=== PATIENT | male | born 1940 | race Caucasian/White ===

== ENCOUNTER 2017-01-05 16:46 | Inpatient (IN) ==
[2017-01-05] MEDS ORDERED: NITROGLYCERIN 2% OINT 1 INCH/GM PACK TOP STA (17:02)
[2017-01-05] MEDS ORDERED: ONDANSETRON 4 MG/2 ML VIAL IV PRN (17:02)
[2017-01-05] MEDS ORDERED: NITROGLYCERIN SL 0.4 MG TABLET SL PRN (17:02)
[2017-01-05] MEDS ORDERED: ENOXAPARIN 100 MG/ML SYRINGE SUBCUT STA (17:02)
[2017-01-05] MEDS ORDERED: MORPHINE 2 MG/1 ML SYRINGE IV PRN ×2 (17:02→20:08)
--- NOTE | 2017-01-05 17:06 | EKG Report ---
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
[2017-01-05 17:17] LABS: Basophils % 0.3 % (0.0-0.8); Eosinophils # 0.1 10*3/uL (0.0-0.87); Eosinophils % 1.2 % (0.00-10.9); Hematocrit 37.1 VOL% (42.0-52.0); Hemoglobin 11.8 GM/DL (14.0-18.0); Immature Granulocytes % 0.3 %; Immature Granulocytes Absolute 0.02 #; Lymphocytes # 2.3 10*3/uL (1.4-4.0); Lymphocytes % 35.5 % (21.2-54.2); Mean Corpuscular HGB Conc 31.8 GM/DL (32-36); Mean Corpuscular Hemoglobin 26 PG (27-34); Mean Corpuscular Volume 81.5 FL (87-102); Mean Platelet Volume 8.9 FL (9.6-12.0); Monocytes # 0.6 10*3/uL (0.11-0.8); Monocytes % 9.7 % (1.7-12.7); Neutrophils # 3.5 10*3/uL (1.4-7.4); Platelet Count 253 T/CUMM (130-400); Red Blood Count 4.55 MC/CUMM (3.8-5.5); Red Cell Distribution Width 15.4 % (9.3-17.3); White Blood Count 6.6 T/CUMM (4-12)
[2017-01-05] MEDS ORDERED: ENOXAPARIN 100 MG/ML SYRINGE SUBCUT ONE (17:17)
[2017-01-05] MEDS ORDERED: NITROGLYCERIN 2% OINT 1 INCH/GM PACK TOP ONE (17:17)
--- NOTE | 2017-01-05 17:22 | Emergency Department Note ---
Enzo Medeiros Emily, am scribing for, and in the presence of, Laurent Garcia MD 17:09. Radha Medeiros James D, MD, personally performed the services described in this documentation, ascribed by Lindy Giraldo in my presence, and it is both accurate and complete . 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 Spouse reports pt missed all medications this morning, his BP medication, Plavix, seizure medication, etc. However, having no medications since last night. Pt denies smoking, melena. He reports being allergic to aspirin, in which he breaks out. PMHx of severe heart attack in 2015, from previous massive stroke with seizure previously to that. Pt's BP is elevated in the 200s/147 in the ED. Onset (ago): minute(s) Consistency: constant, intermittent Severity: moderate Quality: sharp Allergies/Adverse Reactions: Allergies Allergy/AdvReac Type Severity Reaction Status Date / Time aspirin Allergy RASH Verified 01/05/17 17:02 Home Medications: Home Medications Medication Instructions Recorded Confirmed Type Benazepril [Lotensin] 40 mg PO DAILY 03/26/15 03/20/16 History Metoprolol Succinate 100 mg PO DAILY 03/26/15 03/20/16 History Omeprazole [Prilosec] 20 mg PO DAILY 03/26/15 03/20/16 History Clopidogrel [Plavix] 75 mg PO DAILY #30 tablet 03/27/15 03/20/16 Rx Glyburide,Micronized [Glyburide 9 mg PO AC BREAKFAST #45 tablet 08/16/15 Rx Micronized] glyBURIDE MICRONIZED [Glynase] 6 mg PO BEDTIME 08/16/15 03/20/16 History Magnesium Chloride [Slow Mag] 64 mg PO BID 03/20/16 03/20/16 History Meloxicam [Mobic] 15 mg PO DAILY 03/20/16 03/20/16 History Phenytoin ER Cap [Dilantin Cap] 100 mg PO BID 03/20/16 03/20/16 History cloNIDine TAB [Catapres Tab] 0.1 tablet PO DAILY 03/20/16 03/20/16 History levETIRAcetam [Keppra Xr] 500 tablet PO DAILY 03/20/16 03/20/16 History Review of System - Review of System 12 point system: reviewed and no additional remarkable complaints except as stated - Review of System Constitutional: Absent: chills, fever Respiratory: Absent: respiratory distress Cardiovascular: Present: chest pain (sharp pain every 10-15 minutes, radiating to left arm) Gastrointestinal: Absent: abdominal pain, nausea Musculoskeletal: Present: arm pain (left arm). Absent: back pain Skin: Absent: rash Neurological: Absent: headache, numbness Medical,Surgical,& Family Hx - Medical History Cardio: History of: Hypertension Neurology: History of: Cerebrovascular Accident (tia couple weeks ago), Seizures (new), TIA Endocrine: History of: Diabetes Mellitus (NIDDM) Gastrointestinal: History of: GERD, GI Problems (GASTRIC ULCER) - Surgical History Neurologic Surgeries: Patient denies: Neurologic Surgery Abdominal Surgeries: Surgical HX of: Abdominal Surgery (nerves clipped in stomach for ulcers), Appendectomy, Hernia Repair - Family History Family History: Reports;: Family Diabetes (mom and sister), Family Hypertension - Social History Smoking Status: Never smoker Marital Status: Lives With:: Spouse Functional capacity: independent ambulation Exam Vital Signs: Vital Signs Temperature 98.0 F 01/05/17 18:08 Pulse Rate 63 01/05/17 18:17 Respiratory Rate 28 H 01/05/17 18:17 Blood Pressure 218/82 01/05/17 18:17 O2 Sat by Pulse Oximetry 99 01/05/17 18:17 GENERAL: This is a well-nourished well-developed white male in no apparent distress. VITAL SIGNS: Reviewed HEENT: Head is atraumatic and normocephalic. Pupils are equal round react to light. Extraocular movements are intact. Oropharynx is benign with moist mucous membranes. NECK: Neck is soft and supple without tenderness. There are no masses. There is no lymphadenopathy. LUNGS: Lungs are clear to auscultation. Chest rises symmetrically. There is no chest wall tenderness. CV: Heart is regular rate and rhythm without murmurs rubs or gallops. ABDOMEN: Abdomen is soft, nontender to palpation. There are no abdominal abnormal masses palpated. There is no organomegaly. Bowel sounds are present and active. SKIN: Skin is warm and dry. No rash. EXTREMITIES: Patient has full range of motion without tenderness. There is no pedal edema. NEUROLOGIC: Awake alert and oriented 4. Cranial nerves II through XII are grossly intact. Motor is 5 over 5 in all extremities bilaterally. Course - Reevaluation(s) Reevaluation #1: Pain is markedly improved following 2 mg of morphine, 5 mg of Lopressor, one nitroglycerin sublingually and nitro paste. Patient will be given 2 more doses of IV Lopressor for a total of 15 mg IV. Blood pressure is markedly improving. Time: 17:45 - Consultations Consultation #1: Discussed with hospitalist. Patient will be admitted to their service. Time: 17:45 Results - Labs CBC & BMP: 01/05/17 17:09 01/05/17 17:09 Lab Results: I have reviewed the patients labs Labs: Laboratory Tests 01/05/17 01/05/17 17:09 17:09 WBC 6.6 RBC 4.55 Hgb 11.8 L Hct 37.1 L MCV 81.5 L MCH 26 L MCHC 31.8 L Plt Count 253 MPV 8.9 L Urine Color Yellow Urine Appearance Clear Urine pH 5.0 Ur Specific Mitchell 1.013 Urine Protein 30 Urine Glucose (UA) >=500 Urine Blood Negative Urine Nitrate Negative Urine Urobilinogen < 2.0 H Urine Leukocytes Negative Urine RBC 2 Urine WBC <1 Urine Mucus Occasional Laboratory Tests 01/05/17 17:09 Sodium 138 Potassium 3.7 Chloride 106 Carbon Dioxide 24 BUN 19 H Creatinine 1.20 Glucose 401 H ALT 13 L Alkaline Phosphatase 137 H Albumin 3.0 L Globulin 4.3 H Albumin/Globulin Ratio 0.6 L - EKG EKG results: interpreted by ERMD - Impressions EKG: Sinus tachycardia with a rate of 122, marked ST segment depression laterally and inferiorly consistent with myocardial ischemia, left atrial enlargement, normal axis. - Diagnostic Findings Procedure: Chest x-ray: image reviewed by me, report reviewed by me (No evidence of acute pathology.) Critical Care Time Critical Care Time: No Disposition Clinical Impression: Unstable angina, Hypertensive crisis, Diabetes mellitus Case discussed with: patient, patient's family Disposition: Still a Patient Condition: Guarded Time of Disposition: 17:46
[2017-01-05 17:23] LABS: Apearance,Urine CLEAR (Clear); Bilirubin,Urine Negative (Negative); Blood, Urine Negative (Negative); Glucose,Urine (UA) >=500 mg/dL (Negative); Ketones,Urine Negative (Negative); Mucus,Urine Occasional /LPF (Occasional); Nitrite,Urine Negative (Negative); Protein,Urine 30 MG/DL; RBC,Urine 2 /HPF (0-4); Urine Color Yellow (Yellow); Urine Specific Gravity 1.013 (1.001-1.035); Urine Urobilinogen < 2.0 EU/DL (0.2-1.0); WBC,Urine <1 /HPF (0-6)
[2017-01-05 17:31] LABS: PT Patient Result 10.7 SECS; Partial Thromboplastin Time 27.3 SECS (0-40)
[2017-01-05] MEDS: METOPROLOL TARTRATE 5 MG/5 ML VIAL IV SCH ×3 (17:32→17:49)
[2017-01-05 17:58] LABS: Alanine Aminotransferase 13 U/L (16-61); Alkaline Phosphatase 137 U/L (45-117); Aspartate Amino Transferase 8 U/L (0-37); Bilirubin,Total < 0.39 MG/DL (0.2-1.0); Blood Urea Nitrogen 19 MG/DL (7-18); Calcium 8.6 MG/DL (8.5-10.1); Glucose 401 MG/DL (74-106); Osmolality,Calculated 293.7 MOS/KG (273-304); Potassium 3.7 MMOL/L (3.5-5.1); Sodium 138 MMOL/L (136-145); Total Protein 7.3 G/DL (6.4-8.3)
--- NOTE | 2017-01-05 18:13 | XRay Report ---
XR chest 1V portable Indication: Chest pain. Comparison: Chest x-ray 03/20/2016. Technique: Portable AP chest was performed. Findings: Heart size is normal. Pulmonary vasculature appears within normal limits. No significant abnormality of the mediastinal contours demonstrated. Lungs are clear. Bones and soft tissues demonstrate no significant abnormalities. Impression: 1. No evidence of acute pathology. 01/05/2017 6:09 PM PROCEDURE INTERPRETED AT [facility] DEPARTMENT OF RADIOLOGY Final Report Signed by: Dr. Kurt Garcia
--- NOTE | 2017-01-05 18:37 | Hospitalist History & Physical ---
Assessment and Plan - Time spent with patient Time spent with patient: Greater than 30 minutes (1) Chest pain Status: Acute Assessment and plan: 01/05/17 Will admit to CCU. Will continue to monitor closely. Will order a.m. labs. Will start hydration. start DVT prophylaxis. Consult cardiology. Current Visit: Yes (2) Hypertensive crisis Status: Acute Assessment and plan: Will monitor blood pressure closely. Will start medications to control BP. Will consult cardiology and greatly appreciate their assistance with management. Current Visit: Yes History of Present Illness Chief complaint: chest pain/hypertension History of present illness: Mr. Karla Ireland is a 76 year old white male w/ PMHx of hypertension, CVA, Seizures, TIA, Diabetes, GERD, Cholesterol; presented to the ED for c/o sharp chest pain that radiates to left arm. He verbalized that it started in the center of his chest and went down left arm. BP is 200s/147 upon arrival to the ED. He denies pain at the time of exam. In ED it was noted the patient's EKG showed sinus tachycardia at rate 122, marked ST segment depression laterally and inferiorly consistent with myocardial ischemia; left atrial enlargement, normal axis. CXR: no evidence of acute pathology. BUN 19 and creatinine 1.20 ; GLucose 401; Troponin <0.015; ALT 13; Alkaline phos 137; urine negative. After discussion with Dr Garcia in the ED and DR Be with Hospital Medicine it was agreed patient would be admitted for further evaluation of chest pain. Home medications with be reviewed and reconciliation to follow. Home Medications Medication Instructions Recorded Confirmed Type Omeprazole [Prilosec] 20 mg PO QAM 03/26/15 01/05/17 History Magnesium Chloride [Slow Mag] 64 mg PO BID 03/20/16 01/05/17 History Meloxicam [Mobic] 15 mg PO QPM 03/20/16 01/05/17 History Atorvastatin [Lipitor] 10 mg PO QPM 01/05/17 01/05/17 History Clopidogrel [Plavix] 75 mg PO QAM 01/05/17 01/05/17 History Lisinopril [Lisinopril] 10 mg PO QAM 01/05/17 01/05/17 History Metoprolol Tartrate [Metoprolol 50 mg PO BID 01/05/17 01/05/17 History Tartrate] glyBURIDE [Glyburide] 5 mg PO QPM 01/05/17 01/05/17 History glyBURIDE [Glyburide] 7.5 mg PO QAM 01/05/17 01/05/17 History hydrALAZINE TAB [Apresoline Tab] 50 mg PO BID 01/05/17 01/05/17 History levETIRAcetam [Levetiracetam] 750 mg PO BID 01/05/17 01/05/17 History Allergies Allergy/AdvReac Type Severity Reaction Status Date / Time aspirin Allergy RASH Verified 01/05/17 17:02 Medical,Surgical,& Family Hx - Medical History Cardio: History of: Hypertension, [place] Neurology: History of: Cerebrovascular Accident (tia couple weeks ago), Seizures (new), TIA Endocrine: History of: Diabetes Mellitus (NIDDM) Gastrointestinal: History of: GERD, GI Problems (GASTRIC ULCER) - Surgical History Neurologic Surgeries: Patient denies: Neurologic Surgery Abdominal Surgeries: Surgical HX of: Abdominal Surgery (nerves clipped in stomach for ulcers), Appendectomy, Hernia Repair - Family History Family History: Reports;: Family Diabetes (mom and sister), Family Hypertension - Social History Smoking Status: Never smoker Frequency of Alcohol Use: None Type of Drug Use: None 12 point system: reviewed and no additional remarkable complaints except as stated Review of systems: ROS completed and pertinent positives and negatives in the HPI. Exam - Constitutional Vitals: Period Temp Pulse Resp BP Sys/Fields Pulse Ox Last 24 Hr 98.0 F-98.0 F 76-118 12-18 215-262/94-123 95-99 General appearance: normal weight, no acute distress - Head Head exam: Present: normal inspection - Eye Eye exam: Present: EOMI Pupils: Present: RAEGAN - Neck Neck exam: Present: normal inspection - Respiratory Respiratory exam: Present: clear to auscultation bilaterally - Cardiovascular Cardiovascular exam: Present: regular rate and rhythm - GI/Abdominal GI/Abdominal exam: Present: normal bowel sounds, soft. Absent: tenderness, rebound - Extremities Exam Extremities exam: Present: full ROM, other (left side slightly more weak than right r/t CVA 2015). Absent: edema - Neurological Exam Neurological exam: Present: alert, oriented X3 - Psychiatric Psychiatric exam: Present: normal affect, normal mood - Skin Skin exam: Present: normal color, warm, dry Results - Labs CBC & BMP: 01/05/17 17:09 01/05/17 17:09 Lab Results: I have reviewed the past 24 hour labs - EKG EKG results: interpreted by GABD - Diagnostic Findings Procedure: Chest x-ray: report reviewed by me (no evidence of acute pathology)
[2017-01-05] MEDS ORDERED: GLUCAGON 1 MG VIAL IM PRN (20:08)
[2017-01-05] MEDS ORDERED: DEXTROSE 50% 25 GM/50 ML SYRINGE IV PRN (20:08)
[2017-01-05] MEDS ORDERED: LISINOPRIL 10 MG TABLET PO ONE (20:08)
--- NOTE | 2017-01-05 20:16 | EKG Report ---
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
[2017-01-05] MEDS: SODIUM CHLORIDE 0.45% 1,000 ML IV SCH (20:25)
[2017-01-05] MEDS: METOPROLOL TARTRATE 50 MG TABLET PO SCH (20:46)
[2017-01-05] MEDS: levETIRAcetam 250 MG TABLET PO SCH (20:46)
[2017-01-05] MEDS: INSULIN LISPRO 100 UNIT/ML SUBCUT SCH (20:52)
[2017-01-05] MEDS: hydrALAZINE 20 MG/1 ML VIAL IV PRN (22:20)
[2017-01-06] MEDS: NITROGLYCERIN 2% OINT 1 INCH/GM PACK TOP SCH ×4 (00:43→18:48)
[2017-01-06 05:29] LABS: Basophils % 0.3 % (0.0-0.8); Eosinophils % 0.3 % (0.00-10.9); Hematocrit 33.7 VOL% (42.0-52.0); Hemoglobin 10.7 GM/DL (14.0-18.0); Immature Granulocytes % 0.5 %; Immature Granulocytes Absolute 0.04 #; Lymphocytes # 1.7 10*3/uL (1.4-4.0); Lymphocytes % 19.6 % (21.2-54.2); Mean Corpuscular HGB Conc 31.8 GM/DL (32-36); Mean Corpuscular Hemoglobin 26 PG (27-34); Mean Corpuscular Volume 80.6 FL (87-102); Mean Platelet Volume 9.3 FL (9.6-12.0); Monocytes % 11.9 % (1.7-12.7); Neutrophils # 5.8 10*3/uL (1.4-7.4); Neutrophils % 67.4 % (38.7-73.9); Platelet Count 262 T/CUMM (130-400); Red Blood Count 4.18 MC/CUMM (3.8-5.5); Red Cell Distribution Width 15.2 % (9.3-17.3); White Blood Count 8.6 T/CUMM (4-12)
[2017-01-06] MEDS ORDERED: ENOXAPARIN 60 MG/0.6 ML SYRINGE SUBCUT SCH (06:00)
[2017-01-06 06:13] LABS: Calcium 8.6 MG/DL (8.5-10.1); Osmolality,Calculated 281.3 MOS/KG (273-304); Potassium 3.9 MMOL/L (3.5-5.1); Risk Ratio 3.48; VLDL CHOLESTEROL 16.4 MG/DL
--- NOTE | 2017-01-06 06:16 | EKG Report ---
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
[2017-01-06] MEDS: hydrALAZINE 20 MG/1 ML VIAL IV PRN (06:34)
[2017-01-06] MEDS: INSULIN LISPRO 100 UNIT/ML SUBCUT SCH ×4 (07:57→22:41)
[2017-01-06] MEDS: METOPROLOL TARTRATE 50 MG TABLET PO SCH ×2 (08:04→22:42)
--- NOTE | 2017-01-06 08:06 | EKG Report ---
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
--- NOTE | 2017-01-06 08:29 | Cardiology Consult Note ---
Addendum entered and electronically signed by Ary Jay NP 01/06/17 11:52 : We have received the patient's records from his [facility] admission in early April. Apparently, he had a witnessed seizure at home and was brought to [facility] in [place], [place]. Upon his arrival, he had agonal respirations and was minimally responsive and had to be emergently intubated. Elijah's was on neurology bypass and he was subsequently taken to [facility]. He had an NSTEMI with troponin leak of up to 15.7. Echocardiogram on 04/26/16 revealed EF 45%, mild TR, mild HI. Carotid dopplers were obtained and revealed no convincing sonographic evidence of significant narrowing of either ICA. Original Note: <Ary Jay - Last Filed: 01/06/17 10:21> Assessment and Plan - Time spent with patient Time spent with patient: Greater than 30 minutes (due to assessment, plan, and documentation) (1) Chest pain Status: Acute Assessment and plan: See plan of care listed below. Current Visit: Yes (2) Hypertensive crisis Status: Acute Assessment and plan: See plan of care listed below. Current Visit: Yes (3) Diabetes mellitus Status: Chronic Assessment and plan: See plan of care listed below. Current Visit: Yes (4) Dyslipidemia Status: Chronic Assessment and plan: See plan of care listed below. Current Visit: Yes (5) History of CVA (cerebrovascular accident) Status: Chronic Assessment and plan: See plan of care listed below. Current Visit: Yes (6) Seizure disorder Status: Chronic Assessment and plan: See plan of care listed below. Current Visit: Yes (7) Former smoker Status: Chronic Assessment and plan: See plan of care listed below. 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 Karla Ireland is a 76 year old male with a history of hypertension , CVA, seizures, TIA, diabetes, hyperlipidemia, and GERD. He has a reported history of prior MT in April 2016 and was hospitalized at [facility] in [place]. We are trying to obtain these records. He is a former smoker having quit greater than 10 years ago. He has no significant family history of coronary artery disease that he is aware of. He is allergic to aspirin and states that he breaks out in a rash when he has taken this in the past. Mr. Acosta was in his 's hospital room on the third floor yesterday when he woke up with "his heart bothering him." He reports he had a left sided chest pain that was sharp in quality. He reports it lasted about 30 minutes and radiated to his left arm. It was moderate to severe. He has associated shortness of breath and diaphoresis. He denies any nausea or vomiting. He went to the emergency room and his pain was subsequently relieved with medications given including nitroglycerin and IV Lopressor. Apparently, he had not had several of his blood pressure medicines recently and on arrival to the ER, his blood pressure was 262/114. His initial EKG showed diffuse ST depression. Initial troponin was negative. Since then, his troponin kelly to 2.1, and has now started trending down. Latest troponin was 1.67 with CK-MB 5.7. Creatinine 0.8. H&H stable at 10.7 and 33.7. He received 1mg/kg Lovenox in the emergency room and has had no recurrent pain since. Patient states that in April 2016, he was transferred from the hospital in [place], [place] to [facility] emergency room with an MT. He states that he cannot recall his symptoms or events very clearly because he thinks he may have passed out. He describes being on a machine for several days and being seen by Dr. Mcdaniel. It sounds as though he was Ware the CCU on the ventilator but we will try to obtain these records. He is unsure whether or not he had a heart catheterization further workup done at that time. ASSESSMENT/PLAN: 1. CHEST PAIN - Although his symptoms sound fairly typical for ACS, this could also be related to his hypertensive crisis. Differential diagnosis could include : Takotsubo cardiomyopathy. Will obtain echocardiogram. Will continue to cycle cardiac biomarkers and hold patient NPO pending possible ischemic evaluation with left heart cathterization. 2. HYPERTENSIVE URGENCY - He has been started on a Cardene infusion to assist in controlling his blood pressure. We will continue to adjust medications accordingly. 3. DIABETES MELLITUS - Continue accuchecks ACHS and sliding scale insulin. 4. HYPERLIPIDEMIA - Continue lipid lowering agent. Lipid panel revealed triglycerides 82, cholesterol 87, LDL 57, HDL 25 5. REMOTE CVA - With slight residual lower extremity weakness. Uses walker for ambulation. Has been on Plavix. 6. SEIZURE DISORDER - He is a poor historian but reports that some doctors stated that he had a stroke in the past another subsided he has had seizures. He is unsure which. 7. FORMER SMOKER - He is a former smoker having quit greater than 10 years ago and reports he smoked for approximately 14-15 years. CC: Emerita Tavarez MD - Home Medications and Allergies Home Medications: Home Medications Medication Instructions Recorded Confirmed Type Omeprazole [Prilosec] 20 mg PO QAM 03/26/15 01/05/17 History Magnesium Chloride [Slow Mag] 64 mg PO BID 03/20/16 01/05/17 History Meloxicam [Mobic] 15 mg PO QPM 03/20/16 01/05/17 History Atorvastatin [Lipitor] 10 mg PO QPM 01/05/17 01/05/17 History Clopidogrel [Plavix] 75 mg PO QAM 01/05/17 01/05/17 History Lisinopril [Lisinopril] 10 mg PO QAM 01/05/17 01/05/17 History Metoprolol Tartrate [Metoprolol 50 mg PO BID 01/05/17 01/05/17 History Tartrate] glyBURIDE [Glyburide] 5 mg PO QPM 01/05/17 01/05/17 History glyBURIDE [Glyburide] 7.5 mg PO QAM 01/05/17 01/05/17 History hydrALAZINE TAB [Apresoline Tab] 50 mg PO BID 01/05/17 01/05/17 History levETIRAcetam [Levetiracetam] 750 mg PO BID 01/05/17 01/05/17 History Allergies/Adverse Reactions: Allergies Allergy/AdvReac Type Severity Reaction Status Date / Time aspirin Allergy RASH Verified 01/05/17 17:02 Review of systems: - Constitutional: Present: As per HPI. Absent: anorexia, chills, daytime sleepiness, excessive sweating, fever(s), frequent falls, headache(s), increased appetite, lethargy, malaise, night sweats, stops breathing during sleep, weakness, weight gain, weight loss, fatigue. - EENT Eyes: Present: As per HPI. Absent: blurry vision, diplopia, loss of vision Ears: Present: As per HPI. Absent: decreased hearing, ear discharge, ear pain Nose, mouth and throat: Present: As per HPI. Absent: dysphagia, epistaxis, headache(s), hoarseness, lip swelling, nasal congestion, neck mass, neck pain, sinus pressure, sore throat, throat swelling, tongue swelling, vertigo - Cardiovascular: Present: chest pain at rest, dyspnea, occasional BLE edema, diaphoresis, radiating jaw, neck or arm pain, as per HPI. Absent: chest pain with activity, dyspnea on exertion, claudication, lightheadedness, orthopnea, palpitations, PND - Respiratory: Present: dyspnea, as per HPI. Absent: dyspnea on exertion, cough , hemoptysis, wheezing, snoring, pain on inspiration - Gastrointestinal: Present: As per HPI. Absent: abdominal pain, bloating, change in bowel habits, constipation, diarrhea, heartburn, hematemesis, hematochezia, loose stools, melena, nausea, vomiting - Genitourinary: Present: As per HPI. Absent: difficulty urinating, dysuria, flank pain, hematuria, nocturia, urinary frequency, urinary incontinence - Musculoskeletal: Present: As per HPI. Absent: arthralgias, back pain, joint swelling, limited range of motion, muscle cramps, muscle weakness, myalgias - Neurological: Present: As per HPI. Absent: abnormal gait, abnormal speech, behavioral changes, confusion, convulsions, disequilibrium, dizziness, focal weakness, frequent falls, headache(s), memory loss, numbness, paresthesias, radicular pain, syncope, tremor(s) - Psychiatric: Present: As per HPI. Absent: anxiety, confusion, depression, panic attacks - Endocrine: Present: As per HPI. Absent: cold intolerance, fatigue, heat intolerance, polydipsia, polyphagia - Hematologic/Lymphatic: Present: As per HPI. Absent: easy bleeding, easy bruising, lymphadenopathy Medical,Surgical,& Family Hx - Medical History Cardio: History of: Hypertension, MT Neurology: History of: Cerebrovascular Accident (tia couple weeks ago), Seizures (new), TIA Endocrine: History of: Diabetes Mellitus (NIDDM) Gastrointestinal: History of: GERD, GI Problems (GASTRIC ULCER) - Surgical History Neurologic Surgeries: Patient denies: Neurologic Surgery Abdominal Surgeries: Surgical HX of: Abdominal Surgery (nerves clipped in stomach for ulcers), Appendectomy, Hernia Repair - Family History Family History: Reports;: Family Diabetes (mom and sister), Family Hypertension - Social History Smoking Status: Never smoker Frequency of Alcohol Use: None Type of Drug Use: None Physical Examination Vital Signs Temp Pulse Resp BP Pulse Ox 98.0 F 118 H 18 262/114 95 01/05/17 16:58 01/05/17 16:58 01/05/17 16:58 01/05/17 16:58 01/05/17 16:58 Exam: General appearance: Pleasant and cooperative. Overweight, no acute distress. Head exam: Present: normal inspection, normocephalic, atraumatic. Absent: hematoma, laceration Eye exam: Present: EOMI. Absent: conjunctival injection, nystagmus, periorbital swelling, scleral icterus, laceration to eyelids Pupils: Present: PERRL. Absent: constricted, dilated, fixed, irregular, unequal ENT exam: Present: normal exam, normal external ear exam Neck exam: Present: normal inspection. Absent: lymphadenopathy, meningismus, tenderness, thyromegaly, carotid bruit Respiratory exam: Present: clear to auscultation bilaterally. Absent: accessory muscle use, chest wall tenderness, rales, rhonchi, wheezing. Cardiovascular exam: Present: regular rate and rhythm. Absent: gallop, JVD, rubs, murmur GI/Abdominal exam: Present: normal bowel sounds, soft. Absent: distended, firm , guarding, hernia, mass, tenderness, rebound. Extremities exam: Present: normal inspection, normal capillary refill. Upper extremity pulses 2+. Lower extremity pulses 2+. Absent: calf tenderness, edema Musculoskeletal: Present: No Fluid Collection, No Pain, Normal Range of Motion Back exam: Present: normal inspection. Absent: muscle spasm, vertebral tenderness Neurological exam: Present: alert, oriented X3, grossly intact without resting or essential tremor Psychiatric exam: Present: normal affect, normal mood Skin exam: Present: normal color, warm, dry, intact. Absent: cyanosis, diaphoretic, rash, urticaria Result/EKG - Labs CBC & BMP: 01/06/17 04:59 01/06/17 04:59 Lab Results: I have reviewed the past 24 hour labs Labs: Laboratory Results - last 24 hr 01/05/17 01/05/17 01/05/17 17:08 17:09 17:09 WBC RBC Hgb Hct MCV MCH MCHC RDW Plt Count MPV Neut % (Auto) Lymph % (Auto) [place] % (Auto) Eos % (Auto) Baso % (Auto) Neut # (Auto) Lymph # (Auto) [place] # (Auto) Eos # (Auto) Baso # (Auto) Immature Gran % Nucleated RBC % Immature Gran # Nucleated RBCs # Immature Plt Fraction INR 1.0 PT Patient/Control Mix 10.7 Circ Anticoag PTT 27.3 Sodium Potassium Chloride Carbon Dioxide Anion Gap BUN Creatinine GFR Calculation BUN/Creatinine Ratio Glucose POC Glucose Hemoglobin A1c Calculated Osmolality Calcium Total Bilirubin AST ALT Alkaline Phosphatase Troponin I < 0.015 Total Protein Albumin Globulin Albumin/Globulin Ratio Triglycerides Cholesterol LDL Cholesterol VLDL Cholesterol HDL Cholesterol Heart Disease Risk Ratio Urine Color Yellow Urine Appearance Clear Urine pH 5.0 Ur Specific [place] 1.013 Urine Protein 30 Urine Glucose (UA) >=500 Urine Ketones Negative Urine Blood Negative Urine Nitrate Negative Urine Bilirubin Negative Urine Urobilinogen < 2.0 H Urine Leukocytes Negative Urine RBC 2 Urine WBC <1 Urine Mucus Occasional Ur Culture Indicated? Not indicated 01/05/17 01/05/17 01/05/17 17:09 17:09 20:50 WBC 6.6 RBC 4.55 Hgb 11.8 L Hct 37.1 L MCV 81.5 L MCH 26 L MCHC 31.8 L RDW 15.4 Plt Count 253 MPV 8.9 L Neut % (Auto) 53.0 Lymph % (Auto) 35.5 [place] % (Auto) 9.7 Eos % (Auto) 1.2 Baso % (Auto) 0.3 Neut # (Auto) 3.5 Lymph # (Auto) 2.3 [place] # (Auto) 0.6 Eos # (Auto) 0.1 Baso # (Auto) 0.0 Immature Gran % 0.3 Nucleated RBC % 0.0 Immature Gran # 0.02 Nucleated RBCs # 0.00 Immature Plt Fraction 0.0 INR PT Patient/Control Mix Circ Anticoag PTT Sodium 138 Potassium 3.7 Chloride 106 Carbon Dioxide 24 Anion Gap 11.7 BUN 19 H Creatinine 1.20 GFR Calculation 59 BUN/Creatinine Ratio 15.00 Glucose 401 H POC Glucose 381 H Hemoglobin A1c Calculated Osmolality 293.7 Calcium 8.6 Total Bilirubin < 0.39 AST 8 ALT 13 L Alkaline Phosphatase 137 H Troponin I Total Protein 7.3 Albumin 3.0 L Globulin 4.3 H Albumin/Globulin Ratio 0.6 L Triglycerides Cholesterol LDL Cholesterol VLDL Cholesterol HDL Cholesterol Heart Disease Risk Ratio Urine Color Urine Appearance Urine pH Ur Specific [place] Urine Protein Urine Glucose (UA) Urine Ketones Urine Blood Urine Nitrate Urine Bilirubin Urine Urobilinogen Urine Leukocytes Urine RBC Urine WBC Urine Mucus Ur Culture Indicated? 01/05/17 01/06/17 01/06/17 23:08 04:59 04:59 WBC 8.6 D RBC 4.18 Hgb 10.7 L Hct 33.7 L MCV 80.6 L MCH 26 L MCHC 31.8 L RDW 15.2 Plt Count 262 MPV 9.3 L Neut % (Auto) 67.4 Lymph % (Auto) 19.6 L [place] % (Auto) 11.9 Eos % (Auto) 0.3 Baso % (Auto) 0.3 Neut # (Auto) 5.8 Lymph # (Auto) 1.7 [place] # (Auto) 1.0 H Eos # (Auto) 0.0 Baso # (Auto) 0.0 Immature Gran % 0.5 Nucleated RBC % 0.0 Immature Gran # 0.04 Nucleated RBCs # 0.00 Immature Plt Fraction 0.0 INR PT Patient/Control Mix Circ Anticoag PTT Sodium 141 Potassium 3.9 Chloride 107 Carbon Dioxide 25 Anion Gap 12.9 BUN 14 Creatinine 0.80 GFR Calculation 87 BUN/Creatinine Ratio 17.00 Glucose 107 H POC Glucose Hemoglobin A1c Calculated Osmolality 281.3 Calcium 8.6 Total Bilirubin AST ALT Alkaline Phosphatase Troponin I 2.100 H D Total Protein Albumin Globulin Albumin/Globulin Ratio Triglycerides 82 Cholesterol 87 LDL Cholesterol 57.0 VLDL Cholesterol 16.4 HDL Cholesterol 25 L Heart Disease Risk Ratio 3.48 Urine Color Urine Appearance Urine pH Ur Specific [place] Urine Protein Urine Glucose (UA) Urine Ketones Urine Blood Urine Nitrate Urine Bilirubin Urine Urobilinogen Urine Leukocytes Urine RBC Urine WBC Urine Mucus Ur Culture Indicated? 01/06/17 01/06/17 04:59 07:35 WBC RBC Hgb Hct MCV MCH MCHC RDW Plt Count MPV Neut % (Auto) Lymph % (Auto) [place] % (Auto) Eos % (Auto) Baso % (Auto) Neut # (Auto) Lymph # (Auto) [place] # (Auto) Eos # (Auto) Baso # (Auto) Immature Gran % Nucleated RBC % Immature Gran # Nucleated RBCs # Immature Plt Fraction INR PT Patient/Control Mix Circ Anticoag PTT Sodium Potassium Chloride Carbon Dioxide Anion Gap BUN Creatinine GFR Calculation BUN/Creatinine Ratio Glucose POC Glucose 130 H Hemoglobin A1c 8.9 H Calculated Osmolality Calcium Total Bilirubin AST ALT Alkaline Phosphatase Troponin I Total Protein Albumin Globulin Albumin/Globulin Ratio Triglycerides Cholesterol LDL Cholesterol VLDL Cholesterol HDL Cholesterol Heart Disease Risk Ratio Urine Color Urine Appearance Urine pH Ur Specific [place] Urine Protein Urine Glucose (UA) Urine Ketones Urine Blood Urine Nitrate Urine Bilirubin Urine Urobilinogen Urine Leukocytes Urine RBC Urine WBC Urine Mucus Ur Culture Indicated? - EKG EKG results: interpreted by me, sinus rhythm <Max Bolanos - Last Filed: 01/06/17 12:28> History of Present Illness - Consult Narrative History of present illness: Mr. Karla Ireland is a 76 year old male who I personally interviewed and examined. Chart reviewed and discussed this with Ary Jay NP. I agree with this assessment. In summation and addition the patient has a prior history having ST segment elevation microinfarction at [facility] apparently never had a catheterization evaluation. The patient now with elevation of CPK and troponins. The patient has poorly controlled hypertension and presented with hypertensive urgency. Patient has multiple risk factors for coronary disease. He is already on Plavix. The patient needs cardiac catheterization with possible percutaneous coronary mentioned. I reviewed this procedure detail with the patient reviewing medication procedure as well as have be carried out the risk. I discussed cardiac catheterization and percutaneous coronary intervention with the patient. I reviewed with him the indications for the procedure and the basis of how the procedure would be carried out. I also reviewed with him the risk of the procedure which include but not necessarily limited to access site bleeding, bruising, pain, swelling or vascular injury that may require emergency vascular surgery, blood transfusion, or thrombin injection. Also discussed the possibility of stroke, myocardial infarction, arrhythmia which may require electrocardioversion, and the possibility of dye reaction that would require medical therapy. Also discussed the possibility of coronary artery injury, ruptured, closure or perforation that may require emergency bypass surgery. We also discussed the possibility of from a major complication. All his questions were answered. He voices understanding and agrees to proceed. The patient's is not available at this time for consultation question. CC: Emerita Tavarez MD Physical Examination Vital Signs Temp Pulse Resp BP Pulse Ox 98.0 F 118 H 18 262/114 95 01/05/17 16:58 01/05/17 16:58 01/05/17 16:58 01/05/17 16:58 01/05/17 16:58 Result/EKG - Labs CBC & BMP: 01/06/17 04:59 01/06/17 04:59 Labs: Laboratory Results - last 24 hr 01/05/17 01/05/17 01/05/17 17:08 17:09 17:09 WBC RBC Hgb Hct MCV MCH MCHC RDW Plt Count MPV Neut % (Auto) Lymph % (Auto) [place] % (Auto) Eos % (Auto) Baso % (Auto) Neut # (Auto) Lymph # (Auto) [place] # (Auto) Eos # (Auto) Baso # (Auto) Immature Gran % Nucleated RBC % Immature Gran # Nucleated RBCs # Immature Plt Fraction INR 1.0 PT Patient/Control Mix 10.7 Circ Anticoag PTT 27.3 Sodium Potassium Chloride Carbon Dioxide Anion Gap BUN Creatinine GFR Calculation BUN/Creatinine Ratio Glucose POC Glucose Hemoglobin A1c Calculated Osmolality Calcium Total Bilirubin AST ALT Alkaline Phosphatase Total Creatine Kinase CK-MB (CK-2) CK and CKMB Interp Troponin I < 0.015 Total Protein Albumin Globulin Albumin/Globulin Ratio Triglycerides Cholesterol LDL Cholesterol VLDL Cholesterol HDL Cholesterol Heart Disease Risk Ratio Urine Color Yellow Urine Appearance Clear Urine pH 5.0 Ur Specific [place] 1.013 Urine Protein 30 Urine Glucose (UA) >=500 Urine Ketones Negative Urine Blood Negative Urine Nitrate Negative Urine Bilirubin Negative Urine Urobilinogen < 2.0 H Urine Leukocytes Negative Urine RBC 2 Urine WBC <1 Urine Mucus Occasional Ur Culture Indicated? Not indicated 01/05/17 01/05/17 01/05/17 17:09 17:09 20:50 WBC 6.6 RBC 4.55 Hgb 11.8 L Hct 37.1 L MCV 81.5 L MCH 26 L MCHC 31.8 L RDW 15.4 Plt Count 253 MPV 8.9 L Neut % (Auto) 53.0 Lymph % (Auto) 35.5 [place] % (Auto) 9.7 Eos % (Auto) 1.2 Baso % (Auto) 0.3 Neut # (Auto) 3.5 Lymph # (Auto) 2.3 [place] # (Auto) 0.6 Eos # (Auto) 0.1 Baso # (Auto) 0.0 Immature Gran % 0.3 Nucleated RBC % 0.0 Immature Gran # 0.02 Nucleated RBCs # 0.00 Immature Plt Fraction 0.0 INR PT Patient/Control Mix Circ Anticoag PTT Sodium 138 Potassium 3.7 Chloride 106 Carbon Dioxide 24 Anion Gap 11.7 BUN 19 H Creatinine 1.20 GFR Calculation 59 BUN/Creatinine Ratio 15.00 Glucose 401 H POC Glucose 381 H Hemoglobin A1c Calculated Osmolality 293.7 Calcium 8.6 Total Bilirubin < 0.39 AST 8 ALT 13 L Alkaline Phosphatase 137 H Total Creatine Kinase CK-MB (CK-2) CK and CKMB Interp Troponin I Total Protein 7.3 Albumin 3.0 L Globulin 4.3 H Albumin/Globulin Ratio 0.6 L Triglycerides Cholesterol LDL Cholesterol VLDL Cholesterol HDL Cholesterol Heart Disease Risk Ratio Urine Color Urine Appearance Urine pH Ur Specific [place] Urine Protein Urine Glucose (UA) Urine Ketones Urine Blood Urine Nitrate Urine Bilirubin Urine Urobilinogen Urine Leukocytes Urine RBC Urine WBC Urine Mucus Ur Culture Indicated? 01/05/17 01/06/17 01/06/17 23:08 04:59 04:59 WBC 8.6 D RBC 4.18 Hgb 10.7 L Hct 33.7 L MCV 80.6 L MCH 26 L MCHC 31.8 L RDW 15.2 Plt Count 262 MPV 9.3 L Neut % (Auto) 67.4 Lymph % (Auto) 19.6 L [place] % (Auto) 11.9 Eos % (Auto) 0.3 Baso % (Auto) 0.3 Neut # (Auto) 5.8 Lymph # (Auto) 1.7 [place] # (Auto) 1.0 H Eos # (Auto) 0.0 Baso # (Auto) 0.0 Immature Gran % 0.5 Nucleated RBC % 0.0 Immature Gran # 0.04 Nucleated RBCs # 0.00 Immature Plt Fraction 0.0 INR PT Patient/Control Mix Circ Anticoag PTT Sodium 141 Potassium 3.9 Chloride 107 Carbon Dioxide 25 Anion Gap 12.9 BUN 14 Creatinine 0.80 GFR Calculation 87 BUN/Creatinine Ratio 17.00 Glucose 107 H POC Glucose Hemoglobin A1c Calculated Osmolality 281.3 Calcium 8.6 Total Bilirubin AST ALT Alkaline Phosphatase Total Creatine Kinase CK-MB (CK-2) CK and CKMB Interp Troponin I 2.100 H D Total Protein Albumin Globulin Albumin/Globulin Ratio Triglycerides 82 Cholesterol 87 LDL Cholesterol 57.0 VLDL Cholesterol 16.4 HDL Cholesterol 25 L Heart Disease Risk Ratio 3.48 Urine Color Urine Appearance Urine pH Ur Specific [place] Urine Protein Urine Glucose (UA) Urine Ketones Urine Blood Urine Nitrate Urine Bilirubin Urine Urobilinogen Urine Leukocytes Urine RBC Urine WBC Urine Mucus Ur Culture Indicated? 01/06/17 01/06/17 01/06/17 04:59 07:35 08:02 WBC RBC Hgb Hct MCV MCH MCHC RDW Plt Count MPV Neut % (Auto) Lymph % (Auto) [place] % (Auto) Eos % (Auto) Baso % (Auto) Neut # (Auto) Lymph # (Auto) [place] # (Auto) Eos # (Auto) Baso # (Auto) Immature Gran % Nucleated RBC % Immature Gran # Nucleated RBCs # Immature Plt Fraction INR PT Patient/Control Mix Circ Anticoag PTT Sodium Potassium Chloride Carbon Dioxide Anion Gap BUN Creatinine GFR Calculation BUN/Creatinine Ratio Glucose POC Glucose 130 H Hemoglobin A1c 8.9 H Calculated Osmolality Calcium Total Bilirubin AST ALT Alkaline Phosphatase Total Creatine Kinase 57 CK-MB (CK-2) 5.7 H CK and CKMB Interp 10.0 Troponin I 1.670 H D Total Protein Albumin Globulin Albumin/Globulin Ratio Triglycerides Cholesterol LDL Cholesterol VLDL Cholesterol HDL Cholesterol Heart Disease Risk Ratio Urine Color Urine Appearance Urine pH Ur Specific [place] Urine Protein Urine Glucose (UA) Urine Ketones Urine Blood Urine Nitrate Urine Bilirubin Urine Urobilinogen Urine Leukocytes Urine RBC Urine WBC Urine Mucus Ur Culture Indicated? 01/06/17 11:33 WBC RBC Hgb Hct MCV MCH MCHC RDW Plt Count MPV Neut % (Auto) Lymph % (Auto) [place] % (Auto) Eos % (Auto) Baso % (Auto) Neut # (Auto) Lymph # (Auto) [place] # (Auto) Eos # (Auto) Baso # (Auto) Immature Gran % Nucleated RBC % Immature Gran # Nucleated RBCs # Immature Plt Fraction INR PT Patient/Control Mix Circ Anticoag PTT Sodium Potassium Chloride Carbon Dioxide Anion Gap BUN Creatinine GFR Calculation BUN/Creatinine Ratio Glucose POC Glucose 146 H Hemoglobin A1c Calculated Osmolality Calcium Total Bilirubin AST ALT Alkaline Phosphatase Total Creatine Kinase CK-MB (CK-2) CK and CKMB Interp Troponin I Total Protein Albumin Globulin Albumin/Globulin Ratio Triglycerides Cholesterol LDL Cholesterol VLDL Cholesterol HDL Cholesterol Heart Disease Risk Ratio Urine Color Urine Appearance Urine pH Ur Specific [place] Urine Protein Urine Glucose (UA) Urine Ketones Urine Blood Urine Nitrate Urine Bilirubin Urine Urobilinogen Urine Leukocytes Urine RBC Urine WBC Urine Mucus Ur Culture Indicated?
[2017-01-06] MEDS: SODIUM CHLORIDE 0.45% 1,000 ML IV SCH ×2 (08:42→22:05)
[2017-01-06 08:55] LABS: Troponin I Only 1.67 NG/ML (0.00-0.045)
[2017-01-06] MEDS ORDERED: LISINOPRIL 10 MG TABLET PO SCH (09:00)
[2017-01-06] MEDS ORDERED: glyBURIDE 5 MG TABLET PO SCH ×2 (09:00→19:00)
[2017-01-06] MEDS: niCARdipine INJ 25 MG in SODIUM CHLORIDE 0.9% 240 ML IV SCH ×3 (09:00→19:45)
--- NOTE | 2017-01-06 09:49 | Hospitalist Progress Note ---
Assessment and Plan (1) Unstable angina Status: Acute Assessment and plan: 1)NSTEMI- troponins up after episode of typical chest pain in a man with history of HI who hasn't been taking his meds for a few days and presented with uncontrolled HTN. He is allergic to ASA. Continue plavix, lovenox. On his home doses of betablockers and antiHTN with SBP of 190. Begin cardene. cardiology assessing for cath. 2)noncomplinace. 3)allergy to asa 4)DM- SSI. NPO until plan for cath determined. stop glyburide since NPO. 5)seizure disorder- cnotinue meds. Current Visit: Yes (2) Hypertensive crisis Status: Acute Current Visit: Yes (3) Diabetes mellitus Status: Acute Current Visit: Yes Hospitalist: Subjective Interval history: MR Ruff says he feels 100% better compared to when he arrived at ER. The left side chest pain that radiated to his left shoulder has not returned. He admits that since his has been here for her surgery he hasn't been taking his meds. He is hungry, no shortness of breath at this time. His troponin kelly to 2 last night, down to 1.6 now, suspect NSTEMI. Exam - Constitutional Vitals: Period Temp Pulse Resp BP Sys/Fields Pulse Ox Last 24 Hr 98.0 F-98.9 F 63-118 10-28 157-262/61-123 93-99 General appearance: no acute distress, under weight - Head Head exam: Present: normocephalic, atraumatic - Eye Eye exam: Present: EOMI. Absent: scleral icterus - Respiratory Respiratory exam: Present: clear to auscultation bilaterally - Cardiovascular Cardiovascular exam: Present: regular rate and rhythm, other (chest not tender) - GI/Abdominal GI/Abdominal exam: Present: normal bowel sounds, soft. Absent: tenderness - Extremities Exam Extremities exam: Absent: edema Results - Labs CBC & BMP: 01/06/17 04:59 01/06/17 04:59 Lab Results: I have reviewed the past 24 hour labs
[2017-01-06] MEDS ORDERED: POTASSIUM CHLORIDE RIDER 10 MEQ in PREMIX 1 EACH IV PRN (13:48)
[2017-01-06] MEDS ORDERED: DIAZEPAM 5 MG TABLET PO ONE (13:48)
[2017-01-06] MEDS ORDERED: MAGNESIUM SULF RIDER 2 GM in PREMIX 1 EACH IV PRN (13:48)
[2017-01-06] MEDS ORDERED: diphenhydrAMINE CAP 25 MG CAPSULE PO ONE (13:48)
--- NOTE | 2017-01-06 13:48 | Event Note ---
I discussed cardiac catheterization now with the patient's daughter and reviewed the indications benefits risks as I discussed with the patient earlier. She voices understanding and how her questions were answered. She agrees to proceed. She apparently has legal authority. We will plan on carrying out today.
[2017-01-06] MEDS: CLOPIDOGREL 75 MG TABLET PO SCH (13:57)
[2017-01-06] MEDS ORDERED: LIDOCAINE 1% 20 ML VIAL ONE (14:09)
[2017-01-06] MEDS ORDERED: fentaNYL 100 MCG/2 ML VIAL ONE (14:10)
[2017-01-06] MEDS ORDERED: MIDAZOLAM 2 MG/2 ML VIAL ONE (14:10)
[2017-01-06] MEDS ORDERED: VERAPAMIL 5 MG/2 ML VIAL ONE (14:12)
[2017-01-06] MEDS ORDERED: NITROGLYCERIN DRIP 50 MG/250 ML BOTTLE IV ONE (14:12)
[2017-01-06] MEDS ORDERED: TIROFIBAN 5,000 MCG/100 ML PREMIX IV ONE (14:39)
[2017-01-06] MEDS ORDERED: TIROFIBAN 5,000 MCG/100 ML PREMIX IV SCH (14:47)
[2017-01-06] MEDS: levETIRAcetam 250 MG TABLET PO SCH ×2 (14:56→22:42)
[2017-01-06] MEDS ORDERED: CLOPIDOGREL 300 MG TABLET ONE (15:33)
--- NOTE | 2017-01-06 15:40 | Operative Note ---
Date of procedure: 01/06/17 Procedure Preformed: Left heart catheterization with right left coronary angiography. Attempted crossing chronic total occlusion of the RCA. Stenting of the mid LAD and diagonal branch. Surgeon / Physician: Max Bolanos Merchandise Adjustment Clerk: Chriss Saleh Post-op diagnosis: same Findings: Total occlusion of the RCA and unable to cross. This is a chronic occlusion. Successful stenting of the mid LAD and first diagonal branch. Specimens: none sent Estimated blood loss: minimal Condition: stable Anesthesia: local, conscious sedation Disposition: ICU
[2017-01-06 17:37] LABS: Troponin I Only 0.792 NG/ML (0.00-0.045)
[2017-01-06 18:09] LABS: Apearance,Urine CLEAR (Clear); Bilirubin,Urine Negative (Negative); Blood, Urine Negative (Negative); Glucose,Urine (UA) Negative (Negative); Ketones,Urine 5 mg/dL (Negative); Mucus,Urine Occasional /LPF (Occasional); Nitrite,Urine Negative (Negative); Protein,Urine Negative; RBC,Urine 1 /HPF (0-4); Urine Color Yellow (Yellow); Urine Urobilinogen < 2.0 EU/DL (0.2-1.0); WBC,Urine <1 /HPF (0-6)
--- NOTE | 2017-01-06 18:48 | Cardiac Catheterization ---
Date of Procedure:: 01/06/17 Pre-op Diagnosis: Non-ST segment elevation myocardial infarction Post-op diagnosis: same Procedure: LEFT HEART CATHERIZATION History: 76-year-old man with elevated troponins non-ST segment elevation microinfarction. Historically he has had this previously at [facility] but had no catheterization. When asked to evaluate this patient's coronary status. Pre-Op diagnosis: Non-ST segment elevation microinfarction, coronary disease, labile hypertension. Postoperative diagnosis: Coronary disease with total occluded RCA and unable to cross, high-grade LAD stenosis for which LAD proper and diagonal stented. Procedures: 1. Left heart catheterization. 2. Left ventricular angiogram. 3. Selective left and right coronary angiograms. 4. Percutaneous coronary intervention with stent in Equipment: Terumo 6 [place] radial glide arterial sheath, Terumo 6 [place] radial TIG 4.0 diagnostic. Medium/Large TR band. For percutaneous coronary intervention attempt of RCA: AL 0.75 guide catheter, pro-water flex guidewire, PT choice extra support guidewire. For PCI of LAD and diagonal: Medications: Preoperative Benadryl and Valium given by mouth. Lidocaine 1% local anesthesia .25 mls administered by myself. Intraprocedure patient received Versed 2 milligrams IVP, fentanyl 100 micrograms IVP. Verapamil 5 mg/TNG 200 mcg in 5 mL For PCI: Aggrastat bolus 29 mls; Aggrastat infusion 11.2 ml/hr, Plavix 300 mgms. Complications: None immediate. Contrast: Omnipaque milliliters. Description of procedure: After informed consent the patient was given preoperative medications and brought to the catheterization laboratory where their right groin and right anterior wrist and forearm was prepped and draped in usual fashion. IV sedation was then obtained after which local anesthesia with lidocaine was administered over the right radial artery. Using the double wall needle the radial artery was cannulated. Microguidewire was advanced through the cannula into the radial artery. We exchanged for the radial artery sheath that was advanced over the microguidewire. Guidewire was removed. The diagnostic 6 [place]an TIG 4.0 catheter was advanced and used to cross the aortic valve and left ventricular pressures were measured with LVEDP. Left ventricular angiogram was then obtained in the right oblique view. Pressures were again measured in the left ventricle with pullback pressures were then measured in the aortic root. This same catheter was then used to cannulate the left and then right coronary arteries of which angiograms were obtained of each of these vessels in multiple projections. The angiograms were then reviewed. The diagnostic catheter was then removed over the guidewire. Angiograms were reviewed and it was decided to proceed with intervention of the RCA and LAD system. We first turned our attention to the right coronary artery with the AL 0.75 guide advanced cannulating the RCA ostium. This was advanced over guidewire in the usual fashion. Once the RCA was cannulated and we had good guide support we were able to attempt crossing the RCA lesion with a pro-water flex wire and then a PT choice wire. This failed and because the amount of contrast wheezing and the fact that we had excellent left to right collaterals we decided to approach the LAD system. We removed the left coronary guide over guidewire and advanced a TIG 4.0 guide through which the pro-water flex wire was advanced across the mid LAD stenosis. An apex 2.5 x 8 mm PTCA balloon was advanced across this area and inflated to 10 garry for 13 seconds. We then exchanged for a Xience alpine 2.5 x 12 mm stent that was deployed at 14 garry for 20 seconds of the mid LAD. After this balloon was pulled back into final angiograms revealed 0% residual stenosis. We then turned our attention to the second diagonal. The guidewire was then used to cannulate the diagonal branch through which in the the Alpine stent balloon was then advanced used to predilate the diagonal lesion with 2 inflations inflating initially at 8 garry for 10 seconds and then 7 garry for 8 seconds along the same line but it slightly different locations from proximal to mid vessel. We then exchanged this balloon for a science alpine 2.5 x 16 mm stent that was then advanced into the second diagonal where the stent was deployed at 10 garry for 21 seconds. The balloon was then pulled back and final drain revealed 0% residual stenosis. We had excellent results. Final angiograms were obtained. The guide catheter was then removed over guidewire. The TR band was then placed in the usual fashion and hemostasis obtained over the right radial artery. Hemodynamic data: LV 149/11 , EDP 12 ; AO root 163/65 , mean 103 . Left ventricular angiogram: Left ventricular angiogram appear to be overall unremarkable with probably fairly normal anterior wall motion with the inferior wall being slightly or somewhat hypokinetic. He was though not well visualized. Ejection fraction is probably at least in the neighborhood of 45-50 %. Left main coronary artery angiogram: Left main coronary is at least a medium size vessel bifurcates LAD and circumflex arteries. There is no stenosis of the left main coronary artery. Left anterior descending artery angiogram: The LAD is medium caliber vessel proximally that extends around the posterior apex. First diagonal branch is a medium caliber multi-branching vessel, larger the anterior lateral myocardium. This diagonal branch does have some branches with stenosis up to 70%. The second diagonal branch is a medium caliber vessel with mid stenosis of 90% YOSSI II flow. Should be noted that the LAD proper itself has diffuse irregularities with a proximal mid stenosis of less than 30% and a mid stenosis of 80% with YOSSI II flow. Circumflex artery angiogram: Circumflex artery is a small medium caliber nondominant vessel. There are small branches off of this and one small medium caliber obtuse marginal branch of the significant size. There is diffuse luminal irregularities with less than 30% stenosis. Right coronary artery angiogram: The RCA is totally occluded proximally and appears to been the dominant vessel. We DC excellent and rapid collateralization from the left coronary system to the distal RCA with what appears to be posterolateral branches and possible PDA present. We see antegrade and retrograde flow. PCI of RCA: This was attempted as described above but we are unable to cross the total occlusion. We abandoned this for possible later date. PCI of LAD: This is as carried out above with the 80% stenosis with YOSSI II flow dilated to 0% residual stenosis and YOSSI-3 flow. PCI of second diagonal branch: This was carried out as above with the 90% stenosis with YOSSI II flow dilated to 0% residual stenosis and YOSSI-3 flow. Impression: 1. Left ventricle possibly hypokinetic inferior wall. Ejection fraction of may be around 4550%. 2. LVEDP is normal at 12 mmHg. 3. Aortic valve is without gradient. 4. RCA is totally occluded proximally the distal vessel seen by way of excellent left to right collaterals. 5. Failed attempt at intervention of the proximal RCA stenosis. 6. Left main coronary is patent. 7. LAD with high-grade mid stenosis of 80% with second diagonal had a 90% stenosis. There is at least moderate disease and stenosis in the first diagonal. 8. Successful stenting of the mid LAD stenosis of 80% with YOSSI II flow dilated to 0% residual stenosis and YOSSI-3 flow. 9. Successful stenting of the second diagonal branch of 90% with YOSSI II flow to 0% residual stenosis and YOSSI-3 flow. 10. Circumflex artery with luminal irregularities and nondominant. Discussion: We will marked this patient post intervention. Certainly if need be intervention attempt at the RCA again can be done. I think his biggest issues is noncompliance with antihypertensives was leads to accelerated hypertensive episodes that lead to his symptomatology. His daughter states that he is noncompliant with medical therapy. Implants: See above Anesthesia: local, moderate conscious sedation Surgeon / Physician: Max Bolanos Elevator Inspector: other (RT Derian) Estimated blood loss: minimal Specimens: none sent Condition: stable Disposition: ICU/CCU - Medications / Follow-up
[2017-01-06] MEDS: ATORVASTATIN 10 MG TABLET PO SCH (22:42)
[2017-01-06] MEDS: CILOSTAZOL 100 MG TABLET PO SCH (22:42)
[2017-01-07] MEDS: NITROGLYCERIN 2% OINT 1 INCH/GM PACK TOP SCH ×4 (01:52→17:53)
[2017-01-07 04:05] LABS: Basophils % 0.5 % (0.0-0.8); Eosinophils # 0.2 10*3/uL (0.0-0.87); Eosinophils % 2.5 % (0.00-10.9); Hematocrit 33.7 VOL% (42.0-52.0); Hemoglobin 10.9 GM/DL (14.0-18.0); Immature Granulocytes % 0.3 %; Immature Granulocytes Absolute 0.02 #; Lymphocytes # 1.6 10*3/uL (1.4-4.0); Lymphocytes % 19.5 % (21.2-54.2); Mean Corpuscular HGB Conc 32.3 GM/DL (32-36); Mean Corpuscular Hemoglobin 26 PG (27-34); Mean Corpuscular Volume 80.4 FL (87-102); Mean Platelet Volume 8.7 FL (9.6-12.0); Monocytes % 12.7 % (1.7-12.7); Neutrophils # 5.1 10*3/uL (1.4-7.4); Neutrophils % 64.5 % (38.7-73.9); Platelet Count 280 T/CUMM (130-400); Red Blood Count 4.19 MC/CUMM (3.8-5.5); Red Cell Distribution Width 15.4 % (9.3-17.3)
[2017-01-07 04:38] LABS: CKMB % 10.2 %; Risk Ratio 4.09; VLDL CHOLESTEROL 22.2 MG/DL
[2017-01-07 05:01] LABS: Troponin I Only 1.01 NG/ML (0.00-0.045)
[2017-01-07 05:27] LABS: Calcium 8.5 MG/DL (8.5-10.1); Osmolality,Calculated 277.7 MOS/KG (273-304); Potassium 3.8 MMOL/L (3.5-5.1)
--- NOTE | 2017-01-07 07:16 | Event Note ---
Patient's had no further chest pain. Blood pressures and heart rate still up some. We need to maximize his medications. His exam is really unremarkable. Hopefully we had to move to the floor today. Full note to follow.
--- NOTE | 2017-01-07 07:19 | Cardiology Progress Note ---
<Ary Jay E - Last Filed: 01/07/17 07:28> Assessment and Plan - Time spent with patient Time spent with patient: Less than 30 minutes (1) Coronary artery disease Status: Chronic Assessment and plan: See plan of care listed below. Current Visit: Yes (2) Chest pain Status: Acute Assessment and plan: See plan of care listed below. Current Visit: Yes (3) Hypertensive crisis Status: Acute Assessment and plan: See plan of care listed below. Current Visit: Yes (4) Diabetes mellitus Status: Chronic Assessment and plan: See plan of care listed below. Current Visit: Yes (5) Dyslipidemia Status: Chronic Assessment and plan: See plan of care listed below. Current Visit: Yes (6) History of CVA (cerebrovascular accident) Status: Chronic Assessment and plan: See plan of care listed below. Current Visit: Yes (7) Seizure disorder Status: Chronic Assessment and plan: See plan of care listed below. Current Visit: Yes (8) Former smoker Status: Chronic Assessment and plan: See plan of care listed below. 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 Karla Ireland is a 76 year old male with a history of hypertension, prior [place], CVA, seizures, TIA, diabetes, hyperlipidemia, and GERD. He was in his 's hospital room on 3E when he woke up with chest pain. His daughter took him to the emergency room where he was subsequently admitted to hospitalist services with hypertensive urgency. His initial EKG showed diffuse ST depression. Troponin kelly to 2.1. We were consulted to see him. He was starated on cardene infusion for elevated blood pressure. He underwent left heart catheterization yesterday with Dr. Bolanos and received successful stenting of the mid LAD stenosis of 80% and second diagonal branch of 90%. He was also noted to have a totally occluded proximal RCA with left to right collaterals. There was failed attempt at intervention of the proximal RCA stenosis. EF 45-50% . JANUARY 07, 2017 UPDATE: Mr. Acosta is doing well this morning. Cardene was turned off this morning around 0300. Blood pressure is well controlled presently. His right radial cath site is open to air. No bleeding, hematoma, or bruit at site. Right radial pulse 2+. He has had no recurrent pain. From cardiology standpoint, he could be transferred to telemetry today. ASSESSMENT/PLAN: 1. CORONARY ARTERY DISEASE - He underwent left heart catheterization yesterday with Dr. Bolanos and received successful stenting of the mid LAD stenosis of 80% and second diagonal branch of 90%. He was also noted to have a totally occluded proximal RCA with left to right collaterals. There was failed attempt at intervention of the proximal RCA stenosis. EF 45-50%. Troponin remains mildly elevated following PCI. Will continue to monitor. 2. HYPERTENSIVE URGENCY - Off cardene infusion. Will continue to monitor and adjust medications accordingly. 3. DIABETES MELLITUS - Continue accuchecks ACHS and sliding scale insulin. 4. HYPERLIPIDEMIA - Continue lipid lowering agent. Lipid panel revealed triglycerides 82, cholesterol 87, LDL 57, HDL 25 5. REMOTE CVA - With slight residual lower extremity weakness. Uses walker for ambulation. Has been on Plavix. 6. SEIZURE DISORDER - He is a poor historian but reports that some doctors stated that he had a stroke in the past another subsided he has had seizures. He is unsure which. 7. FORMER SMOKER - He is a former smoker having quit greater than 10 years ago and reports he smoked for approximately 14-15 years. Exam (Progress Note) - Constitutional Vitals: Period Temp Pulse Resp BP Sys/Fields Pulse Ox Last 24 Hr 97 F-98.2 F 60-86 8-94 114-200/42-107 90-98 Exam: General appearance: Pleasant and cooperative. Overweight, no acute distress. Head exam: Present: normal inspection, normocephalic, atraumatic. Absent: hematoma, laceration Eye exam: Present: EOMI. Absent: conjunctival injection, nystagmus, periorbital swelling, scleral icterus, laceration to eyelids Pupils: Present: PERRL. Absent: constricted, dilated, fixed, irregular, unequal ENT exam: Present: normal exam, normal external ear exam Neck exam: Present: normal inspection. Absent: lymphadenopathy, meningismus, tenderness, thyromegaly, carotid bruit Respiratory exam: Present: clear to auscultation bilaterally. Absent: accessory muscle use, chest wall tenderness, rales, rhonchi, wheezing. Cardiovascular exam: Present: regular rate and rhythm. Absent: gallop, JVD, rubs, murmur GI/Abdominal exam: Present: normal bowel sounds, soft. Absent: distended, firm , guarding, hernia, mass, tenderness, rebound. Extremities exam: Present: normal inspection, normal capillary refill. Upper extremity pulses 2+. Lower extremity pulses 2+. Absent: calf tenderness, edema Musculoskeletal: Present: No Fluid Collection, No Pain, Normal Range of Motion Back exam: Present: normal inspection. Absent: muscle spasm, vertebral tenderness Neurological exam: Present: alert, oriented X3, grossly intact without resting or essential tremor Psychiatric exam: Present: normal affect, normal mood Skin exam: Present: normal color, warm, dry, intact. Absent: cyanosis, diaphoretic, rash, urticaria Right wrist: Cath site open to air, no bleeding, hematoma, or bruit at site. Right radial pulse 2+. Result/EKG - Labs CBC & BMP: 01/07/17 03:39 01/07/17 03:39 Lab Results: I have reviewed the past 24 hour labs Labs: Laboratory Results - last 24 hr 01/06/17 01/06/17 01/06/17 07:35 08:02 11:33 WBC RBC Hgb Hct MCV MCH MCHC RDW Plt Count MPV Neut % (Auto) Lymph % (Auto) [place] % (Auto) Eos % (Auto) Baso % (Auto) Neut # (Auto) Lymph # (Auto) [place] # (Auto) Eos # (Auto) Baso # (Auto) Immature Gran % Nucleated RBC % Immature Gran # Nucleated RBCs # Immature Plt Fraction Sodium Potassium Chloride Carbon Dioxide Anion Gap BUN Creatinine GFR Calculation BUN/Creatinine Ratio Glucose POC Glucose 130 H 146 H Calculated Osmolality Calcium Total Creatine Kinase 57 CK-MB (CK-2) 5.7 H CK and CKMB Interp 10.0 Troponin I 1.670 H D Triglycerides Cholesterol LDL Cholesterol VLDL Cholesterol HDL Cholesterol Heart Disease Risk Ratio Urine Color Urine Appearance Urine pH Ur Specific [place] Urine Protein Urine Glucose (UA) Urine Ketones Urine Blood Urine Nitrate Urine Bilirubin Urine Urobilinogen Urine Leukocytes Urine RBC Urine WBC Urine Mucus Ur Culture Indicated? 01/06/17 01/06/17 01/06/17 16:15 16:42 17:21 WBC RBC Hgb Hct MCV MCH MCHC RDW Plt Count MPV Neut % (Auto) Lymph % (Auto) [place] % (Auto) Eos % (Auto) Baso % (Auto) Neut # (Auto) Lymph # (Auto) [place] # (Auto) Eos # (Auto) Baso # (Auto) Immature Gran % Nucleated RBC % Immature Gran # Nucleated RBCs # Immature Plt Fraction Sodium Potassium Chloride Carbon Dioxide Anion Gap BUN Creatinine GFR Calculation BUN/Creatinine Ratio Glucose POC Glucose 224 H Calculated Osmolality Calcium Total Creatine Kinase 52 CK-MB (CK-2) 4.8 H CK and CKMB Interp Troponin I 0.792 H D Triglycerides Cholesterol LDL Cholesterol VLDL Cholesterol HDL Cholesterol Heart Disease Risk Ratio Urine Color Yellow Urine Appearance Clear Urine pH 5.0 Ur Specific [place] 1.020 Urine Protein Negative Urine Glucose (UA) Negative Urine Ketones 5 Urine Blood Negative Urine Nitrate Negative Urine Bilirubin Negative Urine Urobilinogen < 2.0 H Urine Leukocytes Negative Urine RBC 1 Urine WBC <1 Urine Mucus Occasional Ur Culture Indicated? Not indicated 01/06/17 01/07/17 01/07/17 22:28 03:39 03:39 WBC 8.0 RBC 4.19 Hgb 10.9 L Hct 33.7 L MCV 80.4 L MCH 26 L MCHC 32.3 RDW 15.4 Plt Count 280 MPV 8.7 L Neut % (Auto) 64.5 Lymph % (Auto) 19.5 L [place] % (Auto) 12.7 Eos % (Auto) 2.5 Baso % (Auto) 0.5 Neut # (Auto) 5.1 Lymph # (Auto) 1.6 [place] # (Auto) 1.0 H Eos # (Auto) 0.2 Baso # (Auto) 0.0 Immature Gran % 0.3 Nucleated RBC % 0.0 Immature Gran # 0.02 Nucleated RBCs # 0.00 Immature Plt Fraction 0.0 Sodium 138 Potassium 3.8 Chloride 104 Carbon Dioxide 24 Anion Gap 13.8 BUN 14 Creatinine 1.00 GFR Calculation 73 BUN/Creatinine Ratio 14.00 Glucose 134 H POC Glucose 241 H Calculated Osmolality 277.7 Calcium 8.5 Total Creatine Kinase CK-MB (CK-2) CK and CKMB Interp Troponin I Triglycerides Cholesterol LDL Cholesterol VLDL Cholesterol HDL Cholesterol Heart Disease Risk Ratio Urine Color Urine Appearance Urine pH Ur Specific [place] Urine Protein Urine Glucose (UA) Urine Ketones Urine Blood Urine Nitrate Urine Bilirubin Urine Urobilinogen Urine Leukocytes Urine RBC Urine WBC Urine Mucus Ur Culture Indicated? 01/07/17 03:39 WBC RBC Hgb Hct MCV MCH MCHC RDW Plt Count MPV Neut % (Auto) Lymph % (Auto) [place] % (Auto) Eos % (Auto) Baso % (Auto) Neut # (Auto) Lymph # (Auto) [place] # (Auto) Eos # (Auto) Baso # (Auto) Immature Gran % Nucleated RBC % Immature Gran # Nucleated RBCs # Immature Plt Fraction Sodium Potassium Chloride Carbon Dioxide Anion Gap BUN Creatinine GFR Calculation BUN/Creatinine Ratio Glucose POC Glucose Calculated Osmolality Calcium Total Creatine Kinase 57 CK-MB (CK-2) 5.8 H CK and CKMB Interp 10.2 Troponin I 1.010 H D Triglycerides 111 Cholesterol 94 LDL Cholesterol 62.0 VLDL Cholesterol 22.2 HDL Cholesterol 23 L Heart Disease Risk Ratio 4.09 Urine Color Urine Appearance Urine pH Ur Specific [place] Urine Protein Urine Glucose (UA) Urine Ketones Urine Blood Urine Nitrate Urine Bilirubin Urine Urobilinogen Urine Leukocytes Urine RBC Urine WBC Urine Mucus Ur Culture Indicated? - EKG EKG results: interpreted by me, sinus rhythm Quality Measures - VTE Contraindication to Pharmacological VTE Prophylaxis: High Risk of Bleeding Specialty Discharge - Follow Up or Referrals <Max Bolanos - Last Filed: 01/07/17 14:49> Cardiology - PN: Subj Interval history: Have personally interviewed and examined the patient and review the chart. Discussed this case with Ary Jay NP. I agree with her assessment and evaluation. In summation and addition Mr. Acsota is doing very well post catheterization intervention. I discussed his findings with him again today. He does not have any chest pain shortness of breath. He said no dysrhythmias and generally been doing fairly well. His echocardiogram reveals normal left ventricular function is overall fairly unremarkable. We will continue his risk factor modification. The question long-term is to be his compliance which is been a previous problem. Hopefully he will be transferred to the telemetry floor. Other issue is that he may benefit from rehab or swing bed. Exam (Progress Note) - Constitutional Vitals: Period Temp Pulse Resp BP Sys/Fields Pulse Ox Last 24 Hr 97 F-98.1 F 60-93 10-94 114-167/48-97 90-98 Result/EKG - Labs CBC & BMP: 01/07/17 03:39 01/07/17 03:39 Labs: Laboratory Results - last 24 hr 01/06/17 01/06/17 01/06/17 16:15 16:42 17:21 WBC RBC Hgb Hct MCV MCH MCHC RDW Plt Count MPV Neut % (Auto) Lymph % (Auto) [place] % (Auto) Eos % (Auto) Baso % (Auto) Neut # (Auto) Lymph # (Auto) [place] # (Auto) Eos # (Auto) Baso # (Auto) Immature Gran % Nucleated RBC % Immature Gran # Nucleated RBCs # Immature Plt Fraction Sodium Potassium Chloride Carbon Dioxide Anion Gap BUN Creatinine GFR Calculation BUN/Creatinine Ratio Glucose POC Glucose 224 H Calculated Osmolality Calcium Total Creatine Kinase 52 CK-MB (CK-2) 4.8 H CK and CKMB Interp Troponin I 0.792 H D Triglycerides Cholesterol LDL Cholesterol VLDL Cholesterol HDL Cholesterol Heart Disease Risk Ratio Urine Color Yellow Urine Appearance Clear Urine pH 5.0 Ur Specific [place] 1.020 Urine Protein Negative Urine Glucose (UA) Negative Urine Ketones 5 Urine Blood Negative Urine Nitrate Negative Urine Bilirubin Negative Urine Urobilinogen < 2.0 H Urine Leukocytes Negative Urine RBC 1 Urine WBC <1 Urine Mucus Occasional Ur Culture Indicated? Not indicated 01/06/17 01/07/17 01/07/17 22:28 03:39 03:39 WBC 8.0 RBC 4.19 Hgb 10.9 L Hct 33.7 L MCV 80.4 L MCH 26 L MCHC 32.3 RDW 15.4 Plt Count 280 MPV 8.7 L Neut % (Auto) 64.5 Lymph % (Auto) 19.5 L [place] % (Auto) 12.7 Eos % (Auto) 2.5 Baso % (Auto) 0.5 Neut # (Auto) 5.1 Lymph # (Auto) 1.6 [place] # (Auto) 1.0 H Eos # (Auto) 0.2 Baso # (Auto) 0.0 Immature Gran % 0.3 Nucleated RBC % 0.0 Immature Gran # 0.02 Nucleated RBCs # 0.00 Immature Plt Fraction 0.0 Sodium 138 Potassium 3.8 Chloride 104 Carbon Dioxide 24 Anion Gap 13.8 BUN 14 Creatinine 1.00 GFR Calculation 73 BUN/Creatinine Ratio 14.00 Glucose 134 H POC Glucose 241 H Calculated Osmolality 277.7 Calcium 8.5 Total Creatine Kinase CK-MB (CK-2) CK and CKMB Interp Troponin I Triglycerides Cholesterol LDL Cholesterol VLDL Cholesterol HDL Cholesterol Heart Disease Risk Ratio Urine Color Urine Appearance Urine pH Ur Specific [place] Urine Protein Urine Glucose (UA) Urine Ketones Urine Blood Urine Nitrate Urine Bilirubin Urine Urobilinogen Urine Leukocytes Urine RBC Urine WBC Urine Mucus Ur Culture Indicated? 01/07/17 01/07/17 01/07/17 03:39 07:20 10:59 WBC RBC Hgb Hct MCV MCH MCHC RDW Plt Count MPV Neut % (Auto) Lymph % (Auto) [place] % (Auto) Eos % (Auto) Baso % (Auto) Neut # (Auto) Lymph # (Auto) [place] # (Auto) Eos # (Auto) Baso # (Auto) Immature Gran % Nucleated RBC % Immature Gran # Nucleated RBCs # Immature Plt Fraction Sodium Potassium Chloride Carbon Dioxide Anion Gap BUN Creatinine GFR Calculation BUN/Creatinine Ratio Glucose POC Glucose 191 H 189 H Calculated Osmolality Calcium Total Creatine Kinase 57 CK-MB (CK-2) 5.8 H CK and CKMB Interp 10.2 Troponin I 1.010 H D Triglycerides 111 Cholesterol 94 LDL Cholesterol 62.0 VLDL Cholesterol 22.2 HDL Cholesterol 23 L Heart Disease Risk Ratio 4.09 Urine Color Urine Appearance Urine pH Ur Specific [place] Urine Protein Urine Glucose (UA) Urine Ketones Urine Blood Urine Nitrate Urine Bilirubin Urine Urobilinogen Urine Leukocytes Urine RBC Urine WBC Urine Mucus Ur Culture Indicated?
[2017-01-07] MEDS: niCARdipine INJ 25 MG in SODIUM CHLORIDE 0.9% 240 ML IV SCH (08:14)
[2017-01-07] MEDS: CILOSTAZOL 100 MG TABLET PO SCH ×2 (08:24→21:39)
[2017-01-07] MEDS: METOPROLOL TARTRATE 100 MG TABLET PO SCH ×2 (08:24→21:37)
[2017-01-07] MEDS: levETIRAcetam 250 MG TABLET PO SCH ×2 (08:24→21:37)
[2017-01-07] MEDS: LISINOPRIL 20 MG TABLET PO SCH (08:24)
[2017-01-07] MEDS: INSULIN LISPRO 100 UNIT/ML SUBCUT SCH ×4 (08:24→21:37)
[2017-01-07] MEDS: CLOPIDOGREL 75 MG TABLET PO SCH (08:24)
--- NOTE | 2017-01-07 14:22 | Hospitalist Progress Note ---
Assessment and Plan (1) Unstable angina Status: Acute Assessment and plan: 1)NSTEMI- troponins up after episode of typical chest pain in a man with history of [place] who hasn't been taking his meds for a few days and presented with uncontrolled HTN. He is allergic to ASA. Continue plavix, lovenox. pletal, lipitor, lisinopril, metoprolol, shceduled and prn hydralazine. BP now better controlled, he's off cardene and tolerating oral antiHTNs. cath with 2 stents. 2)noncomplinace. 3)allergy to asa 4)DM- SSI. NPO until plan for cath determined. stop glyburide since NPO. 5)seizure disorder- continue meds. Current Visit: Yes (2) Hypertensive crisis Status: Acute Current Visit: Yes (3) Diabetes mellitus Status: Chronic Current Visit: Yes Hospitalist: Subjective Interval history: Mr Massey had NSTEMI and cath yesterday resulted in a stent in LAD and diagonal. He feels good today and is happy to be reunited with his who has been discharged from her room after knee surgery and can visit. He will transfer to [facility] today and likely go home tomorrow. Exam - Constitutional Vitals: Period Temp Pulse Resp BP Sys/Fields Pulse Ox Last 24 Hr 97 F-98.1 F 60-93 10-94 114-167/48-97 90-98 General appearance: normal weight, no acute distress - Head Head exam: Present: normocephalic, atraumatic - Eye Eye exam: Present: EOMI. Absent: scleral icterus - Respiratory Respiratory exam: Present: clear to auscultation bilaterally - Cardiovascular Cardiovascular exam: Present: regular rate and rhythm - GI/Abdominal GI/Abdominal exam: Present: normal bowel sounds, soft. Absent: tenderness - Extremities Exam Extremities exam: Absent: edema - Neurological Exam Neurological exam: Present: alert, oriented X3 Results - Labs CBC & BMP: 01/07/17 03:39 01/07/17 03:39 Lab Results: I have reviewed the past 24 hour labs Quality Measures - VTE Contraindication to Pharmacological VTE Prophylaxis: High Risk of Bleeding Specialty Discharge - Follow Up or Referrals
[2017-01-07] MEDS: ONDANSETRON 4 MG/2 ML VIAL IV PRN ×2 (14:41→18:40)
[2017-01-07] MEDS ORDERED: ENOXAPARIN 40 MG/0.4 ML SYRINGE SUBCUT SCH (16:00)
[2017-01-07] MEDS ORDERED: ONDANSETRON 4 MG/2 ML VIAL IV ONE (20:46)
[2017-01-07] MEDS: ATORVASTATIN 10 MG TABLET PO SCH (21:37)
[2017-01-08] MEDS: NITROGLYCERIN 2% OINT 1 INCH/GM PACK TOP SCH ×3 (00:56→07:10)
[2017-01-08] MEDS: hydrALAZINE 20 MG/1 ML VIAL IV PRN (04:16)
[2017-01-08 05:24] LABS: Basophils % 0.2 % (0.0-0.8); Hematocrit 34.6 VOL% (42.0-52.0); Hemoglobin 11.1 GM/DL (14.0-18.0); Immature Granulocytes % 0.7 %; Immature Granulocytes Absolute 0.07 #; Lymphocytes # 1.1 10*3/uL (1.4-4.0); Lymphocytes % 10.7 % (21.2-54.2); Mean Corpuscular HGB Conc 32.1 GM/DL (32-36); Mean Corpuscular Hemoglobin 26 PG (27-34); Mean Corpuscular Volume 80.1 FL (87-102); Mean Platelet Volume 9.2 FL (9.6-12.0); Monocytes # 0.7 10*3/uL (0.11-0.8); Neutrophils # 8.5 10*3/uL (1.4-7.4); Neutrophils % 81.4 % (38.7-73.9); Platelet Count 330 T/CUMM (130-400); Red Blood Count 4.32 MC/CUMM (3.8-5.5); Red Cell Distribution Width 15.3 % (9.3-17.3); White Blood Count 10.4 T/CUMM (4-12)
[2017-01-08 05:51] LABS: Magnesium 1.9 MG/DL (1.8-2.4); Potassium 4.2 MMOL/L (3.5-5.1)
[2017-01-08 05:57] LABS: Troponin I Only 0.682 NG/ML (0.00-0.045)
[2017-01-08] MEDS: CLOPIDOGREL 75 MG TABLET PO SCH (09:12)
[2017-01-08] MEDS: CILOSTAZOL 100 MG TABLET PO SCH (09:12)
[2017-01-08] MEDS: METOPROLOL TARTRATE 100 MG TABLET PO SCH (09:13)
[2017-01-08] MEDS: levETIRAcetam 250 MG TABLET PO SCH (09:13)
[2017-01-08] MEDS: LISINOPRIL 20 MG TABLET PO SCH (09:13)
[2017-01-08] MEDS: INSULIN LISPRO 100 UNIT/ML SUBCUT SCH (09:14)
--- NOTE | 2017-01-08 10:10 | Discharge Summary ---
Hospital Course - Hospital Course Hospital Course: Mr. Davalos is a 76-year-old white male with multiple medical problems who complained of sharp left-sided chest pain with radiation to the arm at rest while sleeping approximately 4:30 in the afternoon. He had associated shortness of breath and diaphoresis but no nausea. He was seen in the emergency room and noted to be severely hypertensive and treated with nitroglycerin and IV Lopressor with resolution of the pain after approximately 1 hour. He was admitted to the hospitalist service and placed in the ICU and treated for hypertensive crisis. Serial cardiac biomarkers and EKGs were performed and he had evidence of a non-ST segment elevation myocardial infarction. He was seen by cardiology and underwent left heart catheterization on 01-06-17 and patient was noted to have a hypokinetic inferior wall with ejection fraction around 45-50%. RCA was totally occluded proximally with excellent collaterals. There is failed attempted intervention of the proximal RCA stenosis. Left main coronary was patent. There was a high-grade mid stenosis of 80% of the LAD with second diagonal 90% stenosis. There are successful stenting of the mid LAD stenosis of 80% with YOSSI II flow dilated to 0% residual and successful stenting of the second diagonal branch of 90% with YOSSI flow to 0% residual. Circumflex artery was nondominant and had some luminal irregularities. He remained stable and transferred out of the ICU to telemetry. He had continued optimization of his medical therapy. Compliance with medical therapy was reiterated. Today it is felt he had reached maximal benefit from hospital stay and could be discharged home with outpatient follow- up. Time required for counseling patient, coordination of care, preparation of discharge summary and medications was approximately 35 minutes. - Time spent with patient Time with patient DS: Greater than 30 minutes Diagnosis - Discharge Diagnosis (1) Acute non-ST segment elevation myocardial infarction Status: Acute (2) Hypertensive crisis Status: Acute (3) Diabetes mellitus Status: Chronic (4) Coronary artery disease Status: Chronic Specialty Discharge - Follow Up or Referrals Discharge Plan - Discharge Data Disposition: Disch To Home/Self Care Condition at Discharge: Stable Discharge Diet: diabetic diet, heart healthy Activity: resume usual activities as tolerated Contact your physician if you experience:: fever over 101, Redness or swelling, Nausea/Vomiting, Shortness of breath - Discharge Medications New Cilostazol [Pletal] 100 mg PO BID #60 tablet Lisinopril [Prinivil] 20 mg PO DAILY #30 tablet Metoprolol Tartrate Tab [Lopressor Tab] 100 mg PO BID #60 tablet Continue Omeprazole [Prilosec] 20 mg PO QAM Magnesium Chloride [Slow Mag] 64 mg PO BID levETIRAcetam [Levetiracetam] 750 mg PO BID hydrALAZINE TAB [Apresoline Tab] 50 mg PO BID glyBURIDE [Glyburide] 5 mg PO QPM glyBURIDE [Glyburide] 7.5 mg PO QAM Atorvastatin [Lipitor] 10 mg PO QPM Clopidogrel [Plavix] 75 mg PO QAM Discontinued Meloxicam [Mobic] 15 mg PO QPM Metoprolol Tartrate [Metoprolol Tartrate] 50 mg PO BID Lisinopril [Lisinopril] 10 mg PO QAM - Follow Up or Referral Follow Up: Antoinette Wade MD [Primary Care Provider] - 1 Week - Forms/Instructions Instructions: Coronary Artery Disease (GEN), Left Heart Catheterization (DC), Heart Healthy Diet (GEN), Coronary Intravascular Stent Placement, Burrito Maker (GEN) Additional Discharge Instructions: Patient may be discharged after seen by Dr. Bolanos today. Patient is to follow-up with Dr. Bolanos per his direction. Exam - Constitutional Vitals: Period Temp Pulse Resp BP Sys/Fields Pulse Ox Last 24 Hr 97.3 F-99.4 F 74-100 11-31 131-213/55-102 93-96 General appearance: no acute distress - Head Head exam: Present: normocephalic, atraumatic - Eye Eye exam: Present: EOMI Pupils: Present: RAEGAN - ENT ENT exam: Present: normal exam - Neck Neck exam: Present: normal inspection - Respiratory Respiratory exam: Present: clear to auscultation bilaterally. Absent: rales, rhonchi, wheezes - Cardiovascular Cardiovascular exam: Present: regular rate and rhythm. Absent: systolic murmur , tachycardia - GI/Abdominal GI/Abdominal exam: Present: normal bowel sounds, soft. Absent: mass, tenderness , rebound - Extremities Exam Extremities exam: Absent: calf tenderness, edema - Back Exam Back exam: Present: normal inspection - Neurological Exam Neurological exam: Present: alert, oriented X3, CN II-XII intact. Absent: motor sensory deficit - Psychiatric Psychiatric exam: Present: normal affect, normal mood. Absent: agitated, anxious - Skin Skin exam: Present: warm, dry. Absent: erythema, rash Discharge Results Procedures and tests throughout hospitalization: Pending Orders 01/07/17 20:45 Occult Blood Other Stat 01/09/17 04:00 Basic Metabolic Panel w/Mg IN AM Comp Blood Count Auto Diff IN AM 01/10/17 04:00 Basic Metabolic Panel w/Mg IN AM Comp Blood Count Auto Diff IN AM Labs on day of discharge: Labs from last 24 hours 01/08/17 01/08/17 01/08/17 07:01 04:21 04:21 WBC 10.4 RBC 4.32 Hgb 11.1 L Hct 34.6 L MCV 80.1 L MCH 26 L MCHC 32.1 RDW 15.3 Plt Count 330 MPV 9.2 L Neut % (Auto) 81.4 H Lymph % (Auto) 10.7 L [place] % (Auto) 7.0 Eos % (Auto) 0.0 Baso % (Auto) 0.2 Neut # (Auto) 8.5 H Lymph # (Auto) 1.1 L [place] # (Auto) 0.7 Eos # (Auto) 0.0 Baso # (Auto) 0.0 Immature Gran % 0.7 Nucleated RBC % 0.0 Immature Gran # 0.07 Nucleated RBCs # 0.00 Immature Plt Fraction 0.0 Sodium 136 Potassium 4.2 Chloride 100 Carbon Dioxide 24 Anion Gap 16.2 H BUN 20 H Creatinine 1.10 GFR Calculation 65 BUN/Creatinine Ratio 18.00 Glucose 245 H POC Glucose 265 H Calculated Osmolality 282.0 Calcium 9.0 Magnesium 1.9 Troponin I 0.682 H D Levetiracetam 01/07/17 01/07/17 01/07/17 20:13 17:00 10:59 WBC RBC Hgb Hct MCV MCH MCHC RDW Plt Count MPV Neut % (Auto) Lymph % (Auto) [place] % (Auto) Eos % (Auto) Baso % (Auto) Neut # (Auto) Lymph # (Auto) [place] # (Auto) Eos # (Auto) Baso # (Auto) Immature Gran % Nucleated RBC % Immature Gran # Nucleated RBCs # Immature Plt Fraction Sodium Potassium Chloride Carbon Dioxide Anion Gap BUN Creatinine GFR Calculation BUN/Creatinine Ratio Glucose POC Glucose 241 H 234 H 189 H Calculated Osmolality Calcium Magnesium Troponin I Levetiracetam 01/06/17 08:03 WBC RBC Hgb Hct MCV MCH MCHC RDW Plt Count MPV Neut % (Auto) Lymph % (Auto) [place] % (Auto) Eos % (Auto) Baso % (Auto) Neut # (Auto) Lymph # (Auto) [place] # (Auto) Eos # (Auto) Baso # (Auto) Immature Gran % Nucleated RBC % Immature Gran # Nucleated RBCs # Immature Plt Fraction Sodium Potassium Chloride Carbon Dioxide Anion Gap BUN Creatinine GFR Calculation BUN/Creatinine Ratio Glucose POC Glucose Calculated Osmolality Calcium Magnesium Troponin I Levetiracetam 16.0 DS: Provider Date of admission: 01/05/17 17:49 Primary care physician: Antoinette Liz Attending physician on admission: Negra Nieto MD Consults: 01/05/17 20:08 Consult to Physician [CONS] Routine Comment: cp, htn Consulting Provider: Cardiology - [facility] 01/06/17 15:40 Consult to Cardiac Rehabilitation [CONS] Routine Reason for Cardiac Rehabilitation: Risk Factor Modification Discharging clinician: Susanne Ch Expected date of discharge: 01/08/17
--- NOTE | 2017-01-08 10:39 | Cardiology Progress Note ---
Assessment and Plan (1) Non-compliant behavior Status: Acute Assessment and plan: This is a problem with his medical therapy and especially his blood pressure. Current Visit: Yes (2) Hypertensive crisis Status: Acute Assessment and plan: Still has some elevations blood pressures but this is better. This can be monitored as an outpatient. Current Visit: Yes (3) Diabetes mellitus Status: Chronic Assessment and plan: Followed by a Hospital service. Current Visit: Yes (4) Dyslipidemia Status: Chronic Assessment and plan: Continue present medications. Current Visit: Yes (5) History of CVA (cerebrovascular accident) Status: Chronic Current Visit: Yes (6) Seizure disorder Status: Chronic Current Visit: Yes (7) Former smoker Status: Chronic Current Visit: Yes (8) Coronary artery disease Status: Chronic Assessment and plan: Now status post intervention. His total occluded RCA but I think this is chronic. He needs aggressive therapy. Current Visit: Yes (9) Acute non-ST segment elevation myocardial infarction Status: Acute Assessment and plan: Status post percutaneous coronary intervention. Needs continue present medical therapy. We will follow-up in the office. Current Visit: Yes Cardiology - PN: Subj Interval history: Patient is doing well. He has had no chest pain shortness of breath. He has been up in the room without limitations or issues. His right wrist which was his access site is done well. Telemetry morales he is done well without dysrhythmias. His blood pressure still up some but this can be adjusted as an outpatient. He has a history of 4 she has severe noncompliance with medications and therapy. Hopefully when discharged he will maintain taking his medications. His daughter is present with him and understands our plans. Exam (Progress Note) - Constitutional Vitals: Period Temp Pulse Resp BP Sys/Fields Pulse Ox Last 24 Hr 97.3 F-99.4 F 74-100 11-31 131-213/55-102 93-96 Exam: General appearance: normal weight, no acute distress HEENT exam: normal inspection, atraumatic Neck exam: normal inspection no JVD. No carotid bruit. Trachea is in midline Respiratory/lungs exam: clear to auscultation bilaterally good air movement. Cardiovascular exam: regular rate and rhythm, no murmur or gallop or rub. No precordial lift. Chest wall exam: nontender GI/Abdominal exam: normal bowel sounds, soft, nontender, no abdominal bruits or pulsatile masses. Extremeties/musculoskeletal: normal inspection without edema or cyanosis. Neurological exam: alert, oriented X3, no focal deficits Psychiatric exam: normal affect, normal mood. Cognitive function is grossly normal. Skin exam: normal color, warm Result/EKG - Labs CBC & BMP: 01/08/17 04:21 01/08/17 04:21 Lab Results: I have reviewed the past 24 hour labs (Lab is stable.) Labs: Laboratory Results - last 24 hr 01/06/17 01/07/17 01/07/17 08:03 10:59 17:00 WBC RBC Hgb Hct MCV MCH MCHC RDW Plt Count MPV Neut % (Auto) Lymph % (Auto) [place] % (Auto) Eos % (Auto) Baso % (Auto) Neut # (Auto) Lymph # (Auto) [place] # (Auto) Eos # (Auto) Baso # (Auto) Immature Gran % Nucleated RBC % Immature Gran # Nucleated RBCs # Immature Plt Fraction Sodium Potassium Chloride Carbon Dioxide Anion Gap BUN Creatinine GFR Calculation BUN/Creatinine Ratio Glucose POC Glucose 189 H 234 H Calculated Osmolality Calcium Magnesium Troponin I Levetiracetam 16.0 01/07/17 01/08/17 01/08/17 20:13 04:21 04:21 WBC 10.4 RBC 4.32 Hgb 11.1 L Hct 34.6 L MCV 80.1 L MCH 26 L MCHC 32.1 RDW 15.3 Plt Count 330 MPV 9.2 L Neut % (Auto) 81.4 H Lymph % (Auto) 10.7 L [place] % (Auto) 7.0 Eos % (Auto) 0.0 Baso % (Auto) 0.2 Neut # (Auto) 8.5 H Lymph # (Auto) 1.1 L [place] # (Auto) 0.7 Eos # (Auto) 0.0 Baso # (Auto) 0.0 Immature Gran % 0.7 Nucleated RBC % 0.0 Immature Gran # 0.07 Nucleated RBCs # 0.00 Immature Plt Fraction 0.0 Sodium 136 Potassium 4.2 Chloride 100 Carbon Dioxide 24 Anion Gap 16.2 H BUN 20 H Creatinine 1.10 GFR Calculation 65 BUN/Creatinine Ratio 18.00 Glucose 245 H POC Glucose 241 H Calculated Osmolality 282.0 Calcium 9.0 Magnesium 1.9 Troponin I 0.682 H D Levetiracetam 01/08/17 07:01 WBC RBC Hgb Hct MCV MCH MCHC RDW Plt Count MPV Neut % (Auto) Lymph % (Auto) [place] % (Auto) Eos % (Auto) Baso % (Auto) Neut # (Auto) Lymph # (Auto) [place] # (Auto) Eos # (Auto) Baso # (Auto) Immature Gran % Nucleated RBC % Immature Gran # Nucleated RBCs # Immature Plt Fraction Sodium Potassium Chloride Carbon Dioxide Anion Gap BUN Creatinine GFR Calculation BUN/Creatinine Ratio Glucose POC Glucose 265 H Calculated Osmolality Calcium Magnesium Troponin I Levetiracetam - Impressions Impressions: Telemetry with normal sinus rhythm. Quality Measures - VTE Contraindication to Pharmacological VTE Prophylaxis: High Risk of Bleeding Specialty Discharge - Follow Up or Referrals Follow up with: Antoinette Wade MD [Primary Care Provider] - 1 Week Max Bolanos MD [Physician] - 1 Week (Return to clinic in 1 week follow- up with ECG.)
[2017-01-08 12:13] VITALS: BP 175/74
== END 2017-01-08 12:30 | disposition home or self-care (01) | DRG 247 ==
LOC: N.ED 16:46 → SUATTDRO 17:49 → N.EDINP 17:49 → N.CC 19:00 → N.TELEN 01-07 16:35
PROVIDERS: ADMIT Family Medicine; ATTEND Hospitalist
PROC: CLCCHCL (ICD-10-PCS; 2017-01-06 16:15)

== ENCOUNTER 2017-05-15 18:54 | Inpatient (IN) ==
[2017-05-15] MEDS ORDERED: NITROGLYCERIN 2% OINT 1 INCH/GM PACK TOP STA (19:13)
[2017-05-15] MEDS ORDERED: NITROGLYCERIN 2% OINT 1 INCH/GM PACK TOP ONE (19:51)
[2017-05-15 20:49] LABS: Troponin I Only 0.069 NG/ML (0.00-0.045)
[2017-05-15] MEDS ORDERED: ONDANSETRON 4 MG/2 ML VIAL IV PRN (23:19)
[2017-05-15] MEDS ORDERED: GLUCAGON 1 MG VIAL IM PRN (23:19)
[2017-05-15] MEDS ORDERED: DEXTROSE 50% 25 GM/50 ML VIAL IV PRN (23:19)
[2017-05-15] MEDS ORDERED: hydrALAZINE 20 MG/1 ML VIAL IV PRN (23:19)
[2017-05-15] MEDS ORDERED: HYDROmorphone 2 MG/1 ML VIAL IV PRN (23:19)
[2017-05-16] MEDS: SODIUM CHLORIDE 0.9% 1,000 ML IV SCH ×3 (00:21→19:05)
[2017-05-16] MEDS: ENOXAPARIN 60 MG/0.6 ML SYRINGE SUBCUT SCH ×2 (00:22→13:05)
[2017-05-16] MEDS: NITROGLYCERIN 2% OINT 1 INCH/GM PACK TOP SCH ×4 (02:40→18:47)
[2017-05-16] MEDS: INSULIN REGULAR 100 UNIT/ML SUBCUT SCH ×4 (02:40→18:46)
[2017-05-16 05:29] LABS: Troponin I Only 0.253 NG/ML (0.00-0.045)
[2017-05-16 05:47] LABS: Calcium 7.8 MG/DL (8.5-10.1); Potassium 4.7 MMOL/L (3.5-5.1)
[2017-05-16] MEDS: glyBURIDE 5 MG TABLET PO SCH ×2 (09:50→18:43)
[2017-05-16 10:08] LABS: Basophils # 0.1 10*3/uL (0.0-0.2); Eosinophils # 0.3 10*3/uL (0.0-0.87); Eosinophils % 5.7 % (0.00-10.9); Hemoglobin 8.3 GM/DL (14.0-18.0); Immature Granulocytes % 0.4 %; Immature Granulocytes Absolute 0.02 #; Lymphocytes # 1.5 10*3/uL (1.4-4.0); Lymphocytes % 29.8 % (21.2-54.2); Mean Corpuscular HGB Conc 30.7 GM/DL (32-36); Mean Corpuscular Hemoglobin 25 PG (27-34); Mean Corpuscular Volume 80.4 FL (87-102); Mean Platelet Volume 8.6 FL (9.6-12.0); Monocytes # 0.7 10*3/uL (0.11-0.8); Monocytes % 12.8 % (1.7-12.7); Neutrophils # 2.6 10*3/uL (1.4-7.4); Neutrophils % 50.3 % (38.7-73.9); Platelet Count 334 T/CUMM (130-400); Red Blood Count 3.36 MC/CUMM (3.8-5.5); Red Cell Distribution Width 17.4 % (9.3-17.3); White Blood Count 5.1 T/CUMM (4-12)
[2017-05-16] MEDS ORDERED: guaiFENesin/DM ER 600-30 MG TABLET PO PRN (14:15)
[2017-05-16] MEDS ORDERED: ACETAMINOPHEN 325 MG TABLET PO PRN (14:15)
[2017-05-16] MEDS ORDERED: diphenhydrAMINE CAP 25 MG CAPSULE PO PRN (14:15)
[2017-05-16] MEDS ORDERED: BISACODYL 5 MG TABLET PO PRN (14:15)
[2017-05-16] MEDS ORDERED: ZALEPLON 5 MG CAPSULE PO PRN (14:15)
[2017-05-16] MEDS: MINOXIDIL 10 MG TABLET PO SCH (19:10)
[2017-05-16] MEDS: ATORVASTATIN 10 MG TABLET PO SCH (19:10)
[2017-05-16] MEDS: levETIRAcetam 250 MG TABLET PO SCH (20:47)
[2017-05-16] MEDS: MAGNESIUM CHLORIDE 64 MG TABLET PO SCH (20:47)
[2017-05-16] MEDS: METOPROLOL TARTRATE 100 MG TABLET PO SCH (20:48)
[2017-05-17] MEDS: INSULIN REGULAR 100 UNIT/ML SUBCUT SCH ×4 (00:15→18:30)
[2017-05-17] MEDS: NITROGLYCERIN 2% OINT 1 INCH/GM PACK TOP SCH ×4 (00:16→17:44)
[2017-05-17] MEDS: ENOXAPARIN 60 MG/0.6 ML SYRINGE SUBCUT SCH ×2 (00:19→12:28)
[2017-05-17] MEDS: SODIUM CHLORIDE 0.9% 1,000 ML IV SCH ×2 (05:42→14:38)
[2017-05-17 05:52] LABS: Basophils # 0.1 10*3/uL (0.0-0.2); Basophils % 0.9 % (0.0-0.8); Eosinophils # 0.3 10*3/uL (0.0-0.87); Eosinophils % 4.5 % (0.00-10.9); Hematocrit 25.8 VOL% (42.0-52.0); Hemoglobin 7.8 GM/DL (14.0-18.0); Immature Granulocytes % 0.4 %; Immature Granulocytes Absolute 0.02 #; Lymphocytes # 1.6 10*3/uL (1.4-4.0); Lymphocytes % 29.5 % (21.2-54.2); Mean Corpuscular HGB Conc 30.2 GM/DL (32-36); Mean Corpuscular Hemoglobin 24 PG (27-34); Mean Corpuscular Volume 80.6 FL (87-102); Monocytes # 0.9 10*3/uL (0.11-0.8); Neutrophils # 2.7 10*3/uL (1.4-7.4); Neutrophils % 48.7 % (38.7-73.9); Platelet Count 326 T/CUMM (130-400); Red Cell Distribution Width 17.2 % (9.3-17.3); White Blood Count 5.6 T/CUMM (4-12)
[2017-05-17 06:18] LABS: Band Neutrophils 1 % (0-10); Calcium 8.2 MG/DL (8.5-10.1); Eosinophils 4 % (0-10); Giant Platelets Few; Hypochromasia 1+; Lymphocytes 17 % (20-55); Microcytosis Slight; Osmolality,Calculated 282.1 MOS/KG (273-304); Ovalocytes Slight; Platelet Estimate Adequate; Potassium 4.5 MMOL/L (3.5-5.1); Segmented Neutrophils 66 % (50-85); Total Cells Counted 100
[2017-05-17] MEDS: glyBURIDE 5 MG TABLET PO SCH ×2 (08:59→18:22)
[2017-05-17] MEDS: levETIRAcetam 250 MG TABLET PO SCH ×2 (09:00→20:43)
[2017-05-17] MEDS: MAGNESIUM CHLORIDE 64 MG TABLET PO SCH ×2 (09:00→20:43)
[2017-05-17] MEDS: METOPROLOL TARTRATE 100 MG TABLET PO SCH ×2 (09:00→20:43)
[2017-05-17] MEDS: CLOPIDOGREL 75 MG TABLET PO SCH (09:08)
[2017-05-17] MEDS: PANTOPRAZOLE 40 MG TABLET PO SCH (09:08)
[2017-05-17] MEDS: MELOXICAM 7.5 MG TABLET PO SCH (09:22)
[2017-05-17] MEDS: LISINOPRIL 20 MG TABLET PO SCH (09:23)
[2017-05-17] MEDS: THIAMINE 100 MG TABLET PO SCH (09:23)
[2017-05-17] MEDS: ATORVASTATIN 10 MG TABLET PO SCH (18:22)
[2017-05-17] MEDS: MINOXIDIL 10 MG TABLET PO SCH (18:22)
[2017-05-18] MEDS: INSULIN REGULAR 100 UNIT/ML SUBCUT SCH ×4 (00:44→17:13)
[2017-05-18] MEDS: ENOXAPARIN 60 MG/0.6 ML SYRINGE SUBCUT SCH ×2 (00:44→11:07)
[2017-05-18] MEDS: NITROGLYCERIN 2% OINT 1 INCH/GM PACK TOP SCH ×5 (00:45→23:31)
[2017-05-18] MEDS: SODIUM CHLORIDE 0.9% 1,000 ML IV SCH ×2 (04:23→17:13)
[2017-05-18 04:38] LABS: Basophils # 0.1 10*3/uL (0.0-0.2); Eosinophils # 0.2 10*3/uL (0.0-0.87); Eosinophils % 4.6 % (0.00-10.9); Hematocrit 24.6 VOL% (42.0-52.0); Hemoglobin 7.4 GM/DL (14.0-18.0); Immature Granulocytes % 0.4 %; Immature Granulocytes Absolute 0.02 #; Lymphocytes # 1.6 10*3/uL (1.4-4.0); Mean Corpuscular HGB Conc 30.1 GM/DL (32-36); Mean Corpuscular Hemoglobin 24 PG (27-34); Mean Corpuscular Volume 80.9 FL (87-102); Mean Platelet Volume 8.6 FL (9.6-12.0); Monocytes # 0.8 10*3/uL (0.11-0.8); Monocytes % 15.9 % (1.7-12.7); Neutrophils # 2.3 10*3/uL (1.4-7.4); Neutrophils % 46.1 % (38.7-73.9); Platelet Count 300 T/CUMM (130-400); Red Blood Count 3.04 MC/CUMM (3.8-5.5); Red Cell Distribution Width 17.2 % (9.3-17.3)
[2017-05-18 05:08] LABS: Calcium 7.9 MG/DL (8.5-10.1); Magnesium 2.1 MG/DL (1.8-2.4); Osmolality,Calculated 282.1 MOS/KG (273-304); Potassium 4.5 MMOL/L (3.5-5.1)
[2017-05-18 05:43] LABS: Eosinophils 8 % (0-10); Lymphocytes 29 % (20-55); Platelet Estimate Adequate; Segmented Neutrophils 51 % (50-85); Total Cells Counted 100
[2017-05-18 05:44] LABS: Giant Platelets Few; Hypochromasia 1+; Microcytosis Slight; Ovalocytes Slight
[2017-05-18] MEDS: THIAMINE 100 MG TABLET PO SCH (09:23)
[2017-05-18] MEDS: MELOXICAM 7.5 MG TABLET PO SCH (09:23)
[2017-05-18] MEDS: levETIRAcetam 250 MG TABLET PO SCH ×2 (09:23→20:50)
[2017-05-18] MEDS: PANTOPRAZOLE 40 MG TABLET PO SCH (09:24)
[2017-05-18] MEDS: MAGNESIUM CHLORIDE 64 MG TABLET PO SCH ×2 (09:24→20:50)
[2017-05-18] MEDS: CLOPIDOGREL 75 MG TABLET PO SCH (09:24)
[2017-05-18] MEDS: glyBURIDE 5 MG TABLET PO SCH ×2 (09:24→17:12)
[2017-05-18] MEDS: METOPROLOL TARTRATE 100 MG TABLET PO SCH ×2 (09:24→20:50)
[2017-05-18] MEDS: LISINOPRIL 20 MG TABLET PO SCH (09:34)
[2017-05-18 09:52] LABS: Basophils # 0.1 10*3/uL (0.0-0.2); Basophils % 0.9 % (0.0-0.8); Eosinophils # 0.2 10*3/uL (0.0-0.87); Eosinophils % 3.9 % (0.00-10.9); Hematocrit 25.3 VOL% (42.0-52.0); Hemoglobin 7.8 GM/DL (14.0-18.0); Immature Granulocytes % 0.5 %; Immature Granulocytes Absolute 0.03 #; Lymphocytes # 1.2 10*3/uL (1.4-4.0); Lymphocytes % 20.6 % (21.2-54.2); Mean Corpuscular HGB Conc 30.8 GM/DL (32-36); Mean Corpuscular Hemoglobin 25 PG (27-34); Mean Corpuscular Volume 80.8 FL (87-102); Mean Platelet Volume 8.8 FL (9.6-12.0); Monocytes # 0.7 10*3/uL (0.11-0.8); Monocytes % 11.9 % (1.7-12.7); Neutrophils # 3.7 10*3/uL (1.4-7.4); Neutrophils % 62.2 % (38.7-73.9); Platelet Count 320 T/CUMM (130-400); Red Blood Count 3.13 MC/CUMM (3.8-5.5); Red Cell Distribution Width 17.5 % (9.3-17.3); White Blood Count 5.9 T/CUMM (4-12)
[2017-05-18 10:18] LABS: Folate 7.8 NG/ML (5.4-24.0); Vitamin B12 290 PG/ML (211-911)
[2017-05-18 12:24] LABS: Sedimentation Rate-Westergren 46 MM/HR (0-20)
[2017-05-18] MEDS: MINOXIDIL 10 MG TABLET PO SCH (20:50)
[2017-05-18] MEDS: ATORVASTATIN 10 MG TABLET PO SCH (20:50)
[2017-05-19] MEDS: INSULIN REGULAR 100 UNIT/ML SUBCUT SCH ×4 (01:21→17:10)
[2017-05-19 05:11] LABS: Hematocrit 25.2 VOL% (42.0-52.0); Hemoglobin 7.6 GM/DL (14.0-18.0)
[2017-05-19] MEDS: NITROGLYCERIN 2% OINT 1 INCH/GM PACK TOP SCH ×3 (06:15→17:10)
[2017-05-19 09:46] LABS: Hemoglobin A1 (Alkaline) 97.2 % (96.5-98.5); Hemoglobin A2 (Alkaline) 2.8 % (1.5-3.5)
[2017-05-19] MEDS ORDERED: PROPOFOL 200 MG/20 ML VIAL IV ONE (11:18)
[2017-05-19] MEDS ORDERED: LIDOCAINE 100 MG/5 ML SYRINGE ONE (11:18)
[2017-05-19] MEDS: SODIUM CHLORIDE 0.9% 1,000 ML IV SCH ×2 (12:45→21:39)
[2017-05-19] MEDS: MELOXICAM 7.5 MG TABLET PO SCH (12:46)
[2017-05-19] MEDS: CLOPIDOGREL 75 MG TABLET PO SCH (12:46)
[2017-05-19] MEDS: levETIRAcetam 250 MG TABLET PO SCH ×2 (12:46→21:39)
[2017-05-19] MEDS: THIAMINE 100 MG TABLET PO SCH (12:46)
[2017-05-19] MEDS: LISINOPRIL 20 MG TABLET PO SCH (12:46)
[2017-05-19] MEDS: glyBURIDE 5 MG TABLET PO SCH ×2 (12:47→17:09)
[2017-05-19] MEDS: MAGNESIUM CHLORIDE 64 MG TABLET PO SCH ×2 (12:47→21:38)
[2017-05-19] MEDS: PANTOPRAZOLE 40 MG TABLET PO SCH (12:47)
[2017-05-19] MEDS: METOPROLOL TARTRATE 100 MG TABLET PO SCH ×2 (12:47→21:39)
[2017-05-19] MEDS: FERROUS SULFATE 325 MG TABLET PO SCH ×2 (14:50→21:39)
[2017-05-19] MEDS: MINOXIDIL 10 MG TABLET PO SCH (21:39)
[2017-05-19] MEDS: ATORVASTATIN 10 MG TABLET PO SCH (21:39)
[2017-05-20] MEDS: NITROGLYCERIN 2% OINT 1 INCH/GM PACK TOP SCH ×3 (00:26→14:00)
[2017-05-20] MEDS: INSULIN REGULAR 100 UNIT/ML SUBCUT SCH ×3 (00:26→14:01)
[2017-05-20 04:05] LABS: Hematocrit 24.8 VOL% (42.0-52.0); Hemoglobin 7.7 GM/DL (14.0-18.0)
[2017-05-20] MEDS: THIAMINE 100 MG TABLET PO SCH (08:35)
[2017-05-20] MEDS: glyBURIDE 5 MG TABLET PO SCH (08:36)
[2017-05-20] MEDS: CLOPIDOGREL 75 MG TABLET PO SCH (08:37)
[2017-05-20] MEDS: MAGNESIUM CHLORIDE 64 MG TABLET PO SCH (08:38)
[2017-05-20] MEDS: FERROUS SULFATE 325 MG TABLET PO SCH (08:38)
[2017-05-20] MEDS: LISINOPRIL 20 MG TABLET PO SCH (08:38)
[2017-05-20] MEDS: MELOXICAM 7.5 MG TABLET PO SCH (08:38)
[2017-05-20] MEDS: levETIRAcetam 250 MG TABLET PO SCH (08:39)
[2017-05-20] MEDS: METOPROLOL TARTRATE 100 MG TABLET PO SCH (08:40)
[2017-05-20 12:03] VITALS: BP 125/60
[2017-05-20] MEDS: PANTOPRAZOLE 40 MG TABLET PO SCH (14:00)
[2017-05-20] MEDS: SODIUM CHLORIDE 0.9% 1,000 ML IV SCH (14:02)
== END 2017-05-20 13:15 | disposition home or self-care (01) | DRG 313 ==
LOC: EDUNIT# → EDBD → N.ED 18:54 → N.EDINP 21:05 → N.TELEN 22:17
PROVIDERS: ADMIT Internal Medicine Cardiovascular Disease; ATTEND Internal Medicine Cardiovascular Disease